=== PATIENT | male | born 1990 | race Caucasian/White ===

== ENCOUNTER 2020-07-08 12:43 | Emergency (ER) | payer OTHER, SELFPAY ==
[2020-07-08 13:04] VITALS: BP 155/92; PULSE 103; RESP 14; TEMP 37.1; O2SAT 97; BMI 39.3
[2020-07-08 13:22] VITALS: BP 161/98; PULSE 90; O2SAT 96
--- NOTE | 2020-07-08 13:23 | ED_ITS ---
HPI - Abdominal Pain General: Chief Complaint: Abdominal Pain Stated Complaint: L SIDE ABD PAIN, WORSE WITH TOUCH Time Seen by Provider: 07/08/20 13:10 History of Present Illness: HPI narrative: Patient is a well-appearing 29-year-old male seen for left-sided flank pain. He locates the pain to the intercostal region between ribs 9 and 10 on the left in the posterior axillary line. He states that he awoke with the pain this morning. He states the pain completely goes away with rest and is only elicited with palpation or side bending away from it. With palpation, he rates the pain at 7 of 10. At rest it is 0 of 10. He denies recent fever, cough, shortness of breath, chest pain, nausea, vomiting, dysuria, frequency, hematuria, blood in stool. He denies trauma to the area. He has not taken anything for the pain. He has no other acute complaints. Review of Systems General: Reports: 10 or more systems reviewed and unremarkable except in HPI and below Physical Exam Const: COMMON NORMALS: no acute distress, patient oriented x3 and alert HENMT: COMMON NORMALS: normocephalic and atraumatic HEAD & SCALP: normocephalic and atraumatic Eye: COMMON NORMALS: Equal, round and reactive pupils present, EOMs intact bilaterally and no scleral icterus PUPIL: Yes Equal, round and reactive pupils present Chest: COMMONS NORMALS: normal inspection of the chest and normal palpation of entire chest wall CHEST: Yes Symmetrical chest wall rise and Yes localized rib tenderness with anteroposterior compression (Pain with palpation of the musculature between left ribs 9 and 10) Location: 10th rib OTHER: Focal tenderness to palpation in the musculature between ribs 9 and 10 in the posterior axillary line on the left. No pain with palpation of the flank overlying the kidney. No evidence of trauma. No adventitious breath sounds. No increase in pain with deep inspiration. Resp: COMMON NORMALS: normal respiratory effort and No retractions Cardio: COMMON NORMALS: regular rate, regular rhythm and No murmurs present (Cardio) RATE: regular rate RHYTHM: regular rhythm GI: COMMON NORMALS: Normal to inspection, nondistended, normoactive bowel sounds present, Soft to palpation and non-tender PALPATION: Yes Soft to palpation Neuro: COMMON NORMALS: patient oriented x3 SENSORIUM/ORIENTATION: Yes alert Skin: COMMON NORMALS: no rashes or lesions noted GENERAL SKIN EXAM: no rashes or lesions noted Course Vital Signs: Vital signs: Vital Signs Temperature 98.7 F 07/08/20 13:04 Pulse Rate 96 07/08/20 13:25 Respiratory Rate 14 07/08/20 13:04 Blood Pressure 161/89 07/08/20 13:25 Pulse Oximetry 98 07/08/20 13:25 MDM - Abdominal Pain MDM Narrative: Medical decision making narrative: Exam is most consistent with muscular pain. I do not suspect pancreatitis, pyelonephritis, ureteral stone, splenomegaly, PE, pneumonia, pneumothorax, ACS, or any other emergent process warranting further work-up at this time. We discussed the differential and whether it was prudent to pursue further diagnostics, and he elects to go home and treat his symptoms with ibuprofen. He knows he is always welcome back in the emergency department should his symptoms get worse before outpatient follow- up. Discharge Plan Discharge Patient Disposition: Home Clinical Impression: Intercostal muscle pain Condition: Stable Discharge Orders: Discharge ED (Routine); Ordered 07/08/20 Ordered By: Miles Napier Referrals: Ishmael Mcbride MD [Primary Care Provider] - Discharge Diet: Usual diet Discharge Activity: Increase activity as tolerated Activity Restrictions/Additional Instructions: Your pain pattern is most consistent with muscle pain between the ribs. If your symptoms get worse, please have no hesitation to return to the emergency department to undergo imaging and blood tests. I do not think you are having an infection, kidney stone, splenomegaly, pancreatitis, pulmonary embolism, pneumonia, or any other emergency requiring further work-up at this time. Please follow-up with your primary care physician in the next week if symptoms have not completely resolved. Please take 600 mg ibuprofen with food up to 3 times a day for pain control. Coding Level of Care Code ED Senior Operations Analyst for Saran Fwd Exam Detailed
[2020-07-08 13:25] VITALS: BP 161/89; PULSE 96; O2SAT 98
== END 2020-07-08 13:26 | disposition home or self-care (01) ==
LOC: ER 13:37
PROVIDERS: Emergency Provider Physician Assistant; PCP Family Medicine
DX: M79.18 Myalgia, other site (principal)
CPT/HCPCS: 12345; 99281

== ENCOUNTER 2021-11-20 13:45 | Emergency (ER) | payer OTHER, SELFPAY ==
[2021-11-20 14:26] VITALS: BP 172/112; PULSE 75; RESP 18; TEMP 36.8; O2SAT 97; BMI 40.0
--- NOTE | 2021-11-20 15:10 | PC.NURSE ---
At bedside assumed care of patient.
[2021-11-20 15:33] LABS: Basophils # 0.1 10^3/uL (0.0-0.1); Basophils % 0.7 %; Eosinophils # 0.2 10^3/uL (0.0-0.8); Eosinophils % 1.6 %; Hematocrit 56.3 % (42.0-52.0); Hemoglobin 19.1 g/dL (11.7-16.6); Lymphocytes # 3.5 10^3/uL (0.8-4.8); Lymphocytes % 28.4 %; Mean Corpuscular HGB Conc 33.9 g/dL (30.0-36.0); Mean Corpuscular Hemoglobin 28.2 pg (28.0-34.0); Mean Platelet Volume 12.7 fL (7.4-10.4); Monocytes # 0.9 10^3/uL (0.2-0.9); Monocytes % 7.4 %; Neutrophils # 7.52 10^3/uL (1.8-7.7); Neutrophils % 61.4 %; Nucleated Red Blood Cells % 0 %; Platelet Count 203 10^3/cmm (130-400); Red Blood Count 6.78 10^6/uL (4.1-5.3); Red Cell Distribution Width 12.2 % (12.1-15.1); White Blood Count 12.2 10^3/uL (4.0-10.0)
--- NOTE | 2021-11-20 15:35 | W.ED.GENADLT ---
HPI - General Adult General: Chief complaint: Abdominal Pain Stated complaint: Thinks he had a hernia and Left foot injury Time Seen by Provider: 11/20/21 14:52 History of Present Illness: Patient is a 31-year-old male who comes to the ED with left foot injury and tender nodule in the left groin. Patient says he noticed the tender nodule in the left groin approximately 2 days ago. Its tender to palpation. He has not had any increased swelling in left groin and nodule has not gotten larger either. Denies any genital lesions, penile discharge, dysuria, hematuria or STD history. His other complaint is left foot pain after getting a small cut in between his second and third toes. [place] wound daily and soak foot in Epsom salt. He reports increased pain in foot patient is up-to-date on his tetanus. Associated symptoms: Deny chest pain, dyspnea, headache(s), nausea, rash, palpitations or vomiting Review of Systems Const: Denies: fever(s), chills or fatigue Eyes: Denies: change in vision or eye discomfort ENMT: Denies: throat pain, odynophagia, nasal discharge or nasal congestion Card: Denies: chest pain, palpitations, edema, swelling of feet/ankles, dyspnea on exertion or orthopnea Resp: Denies: dyspnea, productive cough or non-productive cough GI: Denies: abdominal pain, nausea, vomiting, diarrhea, constipation or hematochezia : Reports: other (Left groin pain.); Denies: flank pain, difficulty urinating, dysuria or hematuria Musc: Reports: extremity pain (left foot pain); Denies: neck pain, back pain or extremity swelling Skin/Breast: Denies: rash or new lesions Neuro: Denies: headache(s), numbness in extremities or weakness in extremities PFS ED PFSH: Medical History No pertinent family history Surgical History No pertinent past surgical history Physical Exam Const: COMMON NORMALS: no acute distress, patient oriented x3, healthy appearing and alert GENERAL APPEARANCE: cooperative and comfortable HENMT: COMMON NORMALS: normocephalic HEAD & SCALP: normocephalic MOUTH: Normal oral and palatal mucosa present THROAT: posterior oropharynx normal and uvula midline Neck/C-Spine: COMMON NORMALS: supple GENERAL: Yes normal visual inspection Lymph: LYMPHATIC: lymphadenopathy left inguinal single and tender 0.5 cm Resp: COMMON NORMALS: normal respiratory effort, No retractions, No use of accessory muscles and clear to auscultation bilaterally AUSCULTATION: clear to auscultation bilaterally Cardio: COMMON NORMALS: regular rate, regular rhythm, S1 normal heart sound present, S2 normal heart sound present, No gallops present (Cardio), No clicks present (Cardio), No murmurs present (Cardio) and Peripheral pulses 2+ throughout RATE: regular rate RHYTHM: regular rhythm HEART SOUNDS: S1 normal heart sound present and S2 normal heart sound present PERIPHERAL PULSES: Peripheral pulses 2+ throughout GI: COMMON NORMALS: Normal to inspection, nondistended, normoactive bowel sounds present, Soft to palpation, non-tender and no masses INSPECTION: No visible herniation PALPATION: Yes Soft to palpation and No Hernia present : COMMON NORMALS: Yes no CVA tenderness BLADDER/KIDNEY EXAM: Yes no CVA tenderness MALE GROIN/PERINEUM EXAM: Yes inguinal lymphadenopathy (Small tender nodule) Back/Pelvis: COMMON NORMALS: no CVA tenderness Extremity: COMMON NORMALS: normal to inspection NARRATIVE EXTREMITY EXAM: Patient has small superficial cut in between second and third digits of the left toe. Some surrounding erythema but no warmth or purulent drainage noted. No signs of cellulitis noted. Neuro: COMMON NORMALS: patient oriented x3 SENSORIUM/ORIENTATION: Yes alert GAIT: Yes Normal gait present Skin: GENERAL SKIN EXAM: dry skin Course Vital Signs: Vital signs: Vital Signs Temperature 98.2 F 11/20/21 14:26 Pulse Rate 75 11/20/21 14:26 Respiratory Rate 18 11/20/21 14:26 Blood Pressure 172/112 11/20/21 14:26 Pulse Oximetry 97 11/20/21 14:26 [facility] - General Adult Medical Decision Making Patient is a 32-year-old male comes to the ED with pain in the left foot and left groin nodule. Patient has small cut/laceration between second and third digits on left foot from [facility] approximately 3 to 4 days ago. Denies fevers, chills, nausea/vomiting, abdominal pain, bladder or bowel symptoms. Vitals are stable. Exam of patient shows left inguinal single tender lymph node that is approximately half a centimeter in size. Patient's left foot has a superficial cut between second and third digit. He does have some surrounding erythema but no warmth or purulent drainage seen. X-ray of left foot showed no acute findings. White blood cell count 12.2 with rest of CBC and CMP and UA were unremarkable. Patient was diagnosed with lymphadenitis and a cut on left foot. He was discharged home with a prescription for Augmentin and Medrol dose pack. He was told to follow-up with his PCP in the next week for reevaluation. Return ED precautions given. Patient understood and agreed with plan. Lab Data I reviewed the patient's lab results. : 11/20/21 15:22 11/20/21 15:22 Radiology Impressions Foot X-Ray 11/20/21 15:42 IMPRESSION: No acute findings. Laboratory Results WBC 12.2 10^3/uL (4.0-10.0) H 11/20/21 15:22 RBC 6.78 10^6/uL (4.1-5.3) H 11/20/21 15:22 Hgb 19.1 g/dL (11.7-16.6) H 11/20/21 15:22 Hct 56.3 % (42.0-52.0) H 11/20/21 15:22 MCV 83.0 fl (80-94) 11/20/21 15:22 MCH 28.2 pg (28.0-34.0) 11/20/21 15:22 MCHC 33.9 g/dL (30.0-36.0) 11/20/21 15:22 RDW 12.2 % (12.1-15.1) 11/20/21 15:22 Plt Count 203 10^3/cmm (130-400) 11/20/21 15:22 MPV 12.7 fL (7.4-10.4) H 11/20/21 15:22 Neut % (Auto) 61.4 % 11/20/21 15:22 Lymph % (Auto) 28.4 % 11/20/21 15:22 [place] % (Auto) 7.4 % 11/20/21 15:22 Eos % (Auto) 1.6 % 11/20/21 15:22 Baso % (Auto) 0.7 % 11/20/21 15:22 Neut # (Auto) 7.52 10^3/uL (1.8-7.7) 11/20/21 15:22 Lymph # (Auto) 3.5 10^3/uL (0.8-4.8) 11/20/21 15:22 [place] # (Auto) 0.9 10^3/uL (0.2-0.9) 11/20/21 15:22 Eos # (Auto) 0.2 10^3/uL (0.0-0.8) 11/20/21 15:22 Baso # (Auto) 0.1 10^3/uL (0.0-0.1) 11/20/21 15: Nucleated RBC % (auto) 0 % 11/20/21 15: Nucleated RBCs # 0.0 /100WBC 11/20/21 15:22 Sodium 139 mmol/L (136-145) 11/20/21 15:22 Potassium 3.8 mmol/L (3.5-5.1) 11/20/21 15: Chloride 102 mmol/L (98-107) 11/20/21 15: Carbon Dioxide 23 mmol/L (22-29) 11/20/21 15:22 Anion Gap 17.8 (5-19) 11/20/21 15:22 BUN 12 mg/dL (6-20) 11/20/21 15:22 Creatinine 1.0 mg/dL (0.7-1.2) 11/20/21 15:22 GFR Calculation 87.7 mL/min (90-130) L 11/20/21 15:22 Glucose 94 mg/dL (65-115) 11/20/21 15:22 Calculated Osmolality 288 mOsm/kg (285-295) 11/20/21 15:22 Calcium 9.5 mg/dL (8.5-10.5) 11/20/21 15:22 Total Bilirubin 0.6 mg/dL (0.15-1.2) 11/20/21 15:22 AST 31 U/L (0-40) 11/20/21 15:22 ALT 49 U/L (0-41) H 11/20/21 15:22 Alkaline Phosphatase 91 IU/L (40-130) 11/20/21 15:22 Total Protein 8.0 g/dL (6.6-8.7) 11/20/21 15:22 Albumin 5.0 g/dL (3.5-5.2) 11/20/21 15:22 Globulin 3.0 g/dL (1.3-4.6) 11/20/21 15:22 Lipase 61 U/L (13-60) H 11/20/21 15:22 Urine Color Yellow (Yellow) 11/20/21 15:18 Urine Appearance Clear (CLEAR) 11/20/21 15:18 Urine pH 5 (5-7) 11/20/21 15:18 Ur Specific [place] 1.020 (1.005-1.030) 11/20/21 15:18 Urine Protein Neg (Negative) 11/20/21 15:18 Urine Glucose (UA) Norm (Normal) 11/20/21 15:18 Urine Ketones 1+ (Negative) H 11/20/21 15:18 Urine Blood Neg (Negative) 11/20/21 15:18 Urine Nitrate Negative (Negative) 11/20/21 15:18 Urine Bilirubin 1+ (Negative) H 11/20/21 15:18 Urine Urobilinogen 1 mg/dL (Negative) H 11/20/21 15:18 Ur Leukocyte Esterase Trace (Negative) H 11/20/21 15:18 Urine RBC None /hpf (0-2) 11/20/21 15:18 Urine WBC 0-4 /hpf (0-5) H 11/20/21 15:18 Ur Squamous Epith Cells None /hpf (0-5) 11/20/21 15:18 Amorphous Sediment Not Reportable 11/20/21 15:18 Urine Bacteria None /hpf (NONE) 11/20/21 15:18 Urine Mucus Trace /hpf 11/20/21 15:18 Discharge Plan Discharge Patient Disposition: Home Clinical Impression: Lymphadenitis, Cut of foot Condition: Stable Prescriptions: New Augmentin 500-125 mg tablet 1 tab PO BID 7 Days Qty: 14 0RF Medrol (Buddy) 4 mg tablets,dose pack See Rx Instructions .ROUTE .COMPLEX Qty: 21 0RF Rx Instructions: orally per package directions Discharge Orders: Discharge ED (Routine); Ordered 11/20/21 Ordered By: Kvng Stone Referrals: Madison Girard PA [Primary Care Provider] - Discharge Diet: Regular Discharge Activity: Increase activity as tolerated Patient Instructions: Lymphadenitis Activity Restrictions/Additional Instructions: Follow-up with medical provider as directed in the next 7 to 10 days for reevaluation. Take medications as prescribed. Return to the ER or your medical provider if condition worsens. Please read and understand discharge instructions. Thank you for choosing [facility] for your healthcare needs today. Please realize this is an emergency room and that we are providing you with a medical screening exam and this may not be complete and all inclusive of all the testing and or work up that you may need to determine your ailment or severity of your illness. It is very important that you follow up as instructed or that you return to the Emergency Department should you have concerns or if your condition changes or worsens in any way. Coding Level of Care Code ED Technical Sales Representative for Saran Espitia Exam Comprehensive
--- NOTE | 2021-11-20 15:42 | XRR_ITS ---
PROCEDURE INFORMATION: Exam: XR Left Foot Exam date and time: 11/20/2021 4:02 PM Age: 31 years old Clinical indication: Injury or trauma; Other: Cut between toes; Laceration; Left middle toe and left fourth toe; Foreign body involvement not specified; Additional info: Foot injury with pain around 2nd and 3rd digit TECHNIQUE: Imaging protocol: XR Left foot. Views: 3 or more views. COMPARISON: No relevant prior studies available. FINDINGS: Bones/joints: Normal. Soft tissues: Normal. XR/XR foot LT min 3V* [id number] IMPRESSION: No acute findings.
[2021-11-20 15:54] LABS: Alanine Aminotransferase 49 U/L (0-41); Alkaline Phosphatase 91 IU/L (40-130); Anion Gap 17.8 (5-19); Aspartate Amino Transferase 31 U/L (0-40); Blood Urea Nitrogen 12 mg/dL (6-20); Calcium 9.5 mg/dL (8.5-10.5); Carbon Dioxide 23 mmol/L (22-29); Chloride 102 mmol/L (98-107); Glomerular Filtration Rate 87.7 mL/min (90-130); Glucose 94 mg/dL (65-115); Lipase 61 U/L (13-60); Osmolality Calculated 288 mOsm/kg (285-295); Potassium 3.8 mmol/L (3.5-5.1); Sodium 139 mmol/L (136-145); Total Bilirubin 0.6 mg/dL (0.15-1.2)
[2021-11-20 16:01] LABS: Urine Appearance Clear (CLEAR); Urine Color Yellow (Yellow); pH Urine 5 (5-7)
[2021-11-20 16:02] LABS: Bilirubin Urine 1+ (Negative); Blood Urine Neg (Negative); Glucose Urine UA Norm (Normal); Ketones Urine 1+ (Negative); Nitrate Urine Negative (Negative); Protein Urine Neg (Negative)
[2021-11-20 16:03] LABS: Add Urine Microscopic? YES; Leukocyte Esterase Urine Trace (Negative); Urobilinogen Urine 1 mg/dL (Negative)
[2021-11-20 16:04] LABS: Mucus Urine TRACE /hpf; WBC Urine 0-4 /hpf (0-5)
[2021-11-20 16:05] LABS: Add Urine Culture? No
== END 2021-11-20 16:46 | disposition home or self-care (01) ==
PROVIDERS: Emergency Provider Physician Assistant; PCP Physician Assistant
DX: I88.9 Nonspecific lymphadenitis, unspecified (principal); S91.312A Laceration without foreign body, left foot, initial encounter; W26.8XXA Contact with other sharp object(s), not elsewhere classified, initial encounter; Y92.828 Other wilderness area as the place of occurrence of the external cause
CPT/HCPCS: 73630; 80053; 81001; 83690; 85025; 99283

== ENCOUNTER 2024-08-26 09:17 | Inpatient (IN) | payer SELFPAY ==
[2024-08-26] VITALS (27 sets, daily range): BP systolic 132–188; BP diastolic 78–124; PULSE 83–111; RESP 12–27; TEMP 36.6–38.1; O2SAT 91–99; BMI 39.3
--- NOTE | 2024-08-26 09:28 | ED_ITS ---
HPI - Skin/Abscess/Foreign Bdy 2 General: Chief complaint: Skin/Abscess/Foreign Body Stated complaint: cellulitis problems was @ u/c yesterday Time Seen by Provider: 08/26/24 09:20 Source: patient Mode of arrival: ambulatory Limitations: no limitations History of Present Illness: 34-year-old male presents to the ER with complaints of cellulitis on near his right buttock. Patient states he was at the urgent care yesterday for his cellulitis and was prescribed Cefdinir, Cipro and Bactrim (also given IM Rocephin). Patient states he first started noticing the abscess last week on Monday and started having fevers on Monday along with cold night sweats. His highest fever was on Monday at 103 ?F. Patient denies any previous history of cellulitis/abscess. Rating pain at an 8/10. Patient denies chest pain, palpitations, shortness of breath, vision changes, vomiting, diarrhea, or constipation. MD complaint: abscess/boil Onset (ago): day(s) Tetanus up to date: yes Location: buttocks (Right upper buttock ) Severity: severe Severity scale (1-10): 8 Quality: aching and constant Pain Consistency: constant Relieving factors: none Exacerbating factors: palpation and movement (Pain with pressure from sitting) Context: none Associated symptoms: Reports chills, fever(s) and nausea; Deny vomiting Treatments prior to arrival: antibiotic (Cefdinir, Ciprofloxacin, Bactrim from ) and other (Tylenol for fevers) Related Data Home Medications ?Medication ?Instructions ?Recorded ?Confirmed acetaminophen 500 mg tablet 500 mg PO QID PRN Fever Or Pain 08/26/24 08/26/24 (Tylenol Extra Strength) Previous Rx's ?Medication ?Instructions ?Recorded cefdinir 300 mg capsule 300 mg PO BID #20 caps 08/25 ciprofloxacin HCl 500 mg tablet 500 mg PO Q12H #20 tab s 08/25/24 sulfamethoxazole 800 1 tab PO BID #20 tabs mg-trimethoprim 160 mg tablet (Bactrim DS) Allergies Allergy/AdvReac Type Severity Reaction Status Date / Time Penicillins Allergy Severe swelling Verified 08/25/24 10:11 Review of Systems 2 Const: Reports: fever(s), chills, body aches, fatigue and night sweats (Cold night sweats ) Eyes: Denies: change in vision or blurry vision Card: Denies: chest pain or palpitations Resp: Denies: dyspnea, productive cough or non-productive cough GI: Reports: nausea and rectal pain; Denies: abdominal pain, vomiting, hematemesis, diarrhea, constipation, change in bowel habits, hematochezia or melena : Denies: flank pain, dysuria or hematuria Musc: Denies: neck pain, back pain, extremity pain, extremity swelling or joint swelling Skin/Breast: Reports: erythema, skin pain and skin swelling Neuro: Denies: headache(s), numbness in extremities or weakness in extremities PFSH ED 2 PFSH: Medical History No pertinent family history Surgical History No pertinent past surgical history Social History Smoking and tobacco/nicotine status: current every day tobacco/nicotine user Physical Exam 2 Const: COMMON NORMALS: patient oriented x3, no limitations, alert and well nourished GENERAL APPEARANCE: cooperative, in distress (appears uncomfortable secondary to pain) and anxious NUTRITIONAL APPEARANCE: obese O RIENTATION/CONSCIOUSNESS: Yes awake, Yes oriented to person, Yes oriented to place and Yes oriented to time Resp: COMMON NORMALS: normal respiratory effort and clear to auscultation bilaterally EFFORT & INSPECTION: Yes able to speak in complete sentences A USCULTATION: clear to auscultation bilaterally Cardio: COMMON NORMALS: regular rate and regular rhythm RATE: regular rate RHYTHM: regular rhythm GI: COMMON NORMALS: Normal to inspection, nondistended, normoactive bowel sounds present, Soft to palpation, non-tender, No hepatosplenomegaly present and no masses PALPATION: Yes Soft to palpation and Yes No hepatosplenomegaly present OTHER: very large area of warm erythematous and induration noted affecting R gluteal cleft and superior anorectal region; exquisitely tender to palpation; external non-thrombosed hemorrhoids : COMMON NORMALS: Yes no CVA tenderness BLADDER/KIDNEY EXAM: Yes no CVA tenderness Back/Pelvis: COMMON NORMALS: no CVA tenderness Extremity: GENERAL: Yes normal exam except as noted Neuro: COMMON NORMALS: patient oriented x3 SENSORIUM/ORIENTATION: Yes alert, Yes oriented to person, Yes oriented to place and Yes oriented to time Skin: NARRATIVE SKIN EXAM: anorectal abscess GENERAL SKIN EXAM: erythema and induration Course 2 Vital Signs: Vital signs: Vital Signs Temperature 98.7 F 08/26/24 09:26 Pulse Rate 111 H 08/26/24 09:26 Respiratory Rate 17 08/26/24 10:24 Blood Pressure 155/95 08/26/24 11:05 Pulse Oximetry 97 08/26/24 11:05 MDM - Skin/Abscess/Foreign Bdy Medicial Decision Making Patient arrived tachycardic. His white count of 16.38. His lactic is normal. CRP is significantly elevated at 176.4. CT scan did show an ill-defined fluid collection measuring 3 x 4 x 3 cm suspicious for early developing abscess that did not appear easily drainable. Suggestion of a tract of fluid extending to the external anal sphincter. Spoke to general surgeon, Dr. Cornell who will admit patient and plan for probable OR later today. Patient has an allergy to penicillins. He was started on cefuroxime and flagyl. Blood cultures obtained and he was given IBW sepsis bolus. Dr. Canela will place admit orders. Medical Records I reviewed the patient's medical records. Lab Data I reviewed the patient's lab results. 08/26/24 09:50 08/26/24 09:[address] 08/26/24 09:39 IMPRESSION: Small ill-defined fluid collection along the RIGHT gluteal cleft described above. This does not not appear easily drainable. Suggestion of a small fluid- filled tract extending to the external anal sphincter near the 6 o'clock position Laboratory Results WBC 16.38 10^3/uL (3.29-11.43) H 08/26/24 09:50 RBC 6.01 10^6/uL (3.85-5.65) H 08/26/24 09:50 Hgb 16.70 g/dL (11.27-16.99) 08/26/24 09:50 Hct 50.4 % (37-53) 08/26/24 09:50 MCV 83.9 fl (82-101) 08/26/24 09:50 MCH 27.8 pg (27-33) 08/26/24 09:50 MCHC 33.1 g/dL (30-55) 08/26/24 09:50 RDW 12.4 % (12.1-15.1) 08/26/24 09:50 Plt Count 189 10^3/cmm (157-399) 08/26/24 09:50 MPV 12.0 fL (7.4-10.4) H 08/26/24 09:50 Neut % (Auto) 78.4 % 08/26/24 09:50 Lymph % (Auto) 13.3 % 08/26/24 09:50 [place] % (Auto) 6.8 % 08/26/24 09:50 Eos % (Auto) 0.6 % 08/26/24 09:50 Baso % (Auto) 0.4 % 08/26/24 09:50 Neut # (Auto) 12.83 10^3/uL (1.8-7.7) H 08/26/24 09:50 Lymph # (Auto) 2.2 10^3/uL (0.8-4.8) 08/26/24 09:50 [place] # (Auto) 1.1 10^3/uL (0.2-0.9) H 08/26/24 09:50 Eos # (Auto) 0.1 10^3/uL (0.0-0.8) 08/26/24 09:50 Baso # (Auto) 0.1 10^3/uL (0.0-0.1) 08/26/24 09:50 Nucleated RBC % (auto) 0 % 08/26/24 09:50 Nucleated RBCs # 0.0 /100WBC 08/26/24 09:50 Sodium 132 mmol/L (136-145) L 08/26/24 09:50 Potassium 3.5 mmol/L (3.5-5.1) 08/26/24 09:50 Chloride 96 mmol/L (98-107) L 08/26/24 09:50 Carbon Dioxide 22 mmol/L (22-29) 08/26/24 09:50 Anion Gap 17.5 (5-19) 08/26/24 09:50 BUN 7 mg/dL (6-20) 08/26/24 09:50 Creatinine 1.0 mg/dL (0.7-1.2) 08/26/24 09:50 GFR Calculation 86.1 mL/min (90-130) L 08/26/24 09:50 Glucose 149 mg/dL (65-115) H 08/26/24 09:50 Calculated Osmolality 275 mOsm/kg (285-295) L 08/26/24 09:50 Lactic Acid 1.6 mmol/L (0.5-2.2) 08/26/24 09:50 Calcium 9.7 mg/dL (8.5-10.5) 08/26/24 09:50 Total Bilirubin 0.8 mg/dL (0.15-1.2) 08/26/24 09:50 AST 15 U/L (0-40) 08/26/24 09:50 ALT 17 U/L (0-41) 08/26/24 09:50 Alkaline Phosphatase 154 U/L (40-130) H 08/26/24 09:50 C-Reactive Protein 176.4 mg/L (0.0-4.9) H 08/26/24 09:50 Total Protein 8.3 g/dL (6.6-8.7) 08/26/24 09:50 Albumin 4.3 g/dL (3.5-5.2) 08/26/24 09:50 Globulin 4.0 g/dL (1.3-4.6) 08/26/24 09:50 All radiology interpretation(s) finalized by discharge Discharge Plan Discharge Patient Disposition: Admitted As Inpatient Clinical Impression: Anorectal abscess Condition: Stable Coding Level of Care Code ED Director Of Federal Sales for Saran Espitia
--- NOTE | 2024-08-26 09:39 | CT_ITS ---
WS: [id number] CT pelvis TECHNIQUE: Contrast-enhanced CT of the pelvis with coronal and sagittal reformatted images. CLINICAL INFORMATION: anorectal abscess COMPARISON: None. DLP: 1003.[address] scans at [facility] use at least one of these dose optimization techniques: automated exposure control; mA and/or kV adjustment per patient size (includes targeted exams where dose is matched to clinical indication); or iterative reconstruction. FINDINGS: Small ill-defined fluid collection measuring 3.1 x 4.2 x 3.2 suspicious for early developing abscess formation. This does not not appear easily drainable. Suggestion of a small fluid tract extending to the 600 position external anal sphincter. Fluid collection along the RIGHT gluteal cleft with associated induration and soft tissue and skin thickening. Surrounding soft tissue induration in the RIGHT greater than LEFT subcutaneous gluteal soft tissues. CT/CT pelvis w con* [id number] IMPRESSION: Small ill-defined fluid collection along the RIGHT gluteal cleft described abov e. This does not not appear easily drainable. Suggestion of a small fluid-fille d tract extending to the external anal sphincter near the 6 o'clock position
[2024-08-26 10:06] LABS: Basophils # 0.1 10^3/uL (0.0-0.1); Basophils % 0.4 %; Eosinophils # 0.1 10^3/uL (0.0-0.8); Eosinophils % 0.6 %; Hematocrit 50.4 % (37-53); Lymphocytes # 2.2 10^3/uL (0.8-4.8); Lymphocytes % 13.3 %; Mean Corpuscular HGB Conc 33.1 g/dL (30-55); Mean Corpuscular Hemoglobin 27.8 pg (27-33); Mean Corpuscular Volume 83.9 fl (82-101); Monocytes # 1.1 10^3/uL (0.2-0.9); Monocytes % 6.8 %; Neutrophils # 12.83 10^3/uL (1.8-7.7); Neutrophils % 78.4 %; Nucleated Red Blood Cells % 0 %; Platelet Count 189 10^3/cmm (157-399); Red Blood Count 6.01 10^6/uL (3.85-5.65); Red Cell Distribution Width 12.4 % (12.1-15.1); White Blood Count 16.38 10^3/uL (3.29-11.43)
[2024-08-26 10:23] LABS: Lactic Sepsis W/Reflex 1.6 mmol/L (0.5-2.2)
[2024-08-26] MEDS: ondansetron 2 mg/ML SDV 2 mL 4 MG IVP (10:23)
[2024-08-26 10:24] LABS: Alanine Aminotransferase 17 U/L (0-41); Albumin Level 4.3 g/dL (3.5-5.2); Alkaline Phosphatase 154 U/L (40-130); Anion Gap 17.5 (5-19); Aspartate Amino Transferase 15 U/L (0-40); Blood Urea Nitrogen 7 mg/dL (6-20); C Reactive Protein 176.4 mg/L (0.0-4.9); Calcium 9.7 mg/dL (8.5-10.5); Carbon Dioxide 22 mmol/L (22-29); Chloride 96 mmol/L (98-107); Creatinine Clr Calc Pharmacy 147.3877; Glomerular Filtration Rate 86.1 mL/min (90-130); Glucose 149 mg/dL (65-115); Osmolality Calculated 275 mOsm/kg (285-295); Potassium 3.5 mmol/L (3.5-5.1); Sodium 132 mmol/L (136-145); Total Bilirubin 0.8 mg/dL (0.15-1.2); Total Protein 8.3 g/dL (6.6-8.7)
[2024-08-26] MEDS: morphine 4 mg/mL SDV 1 mL IVP ×2 (10:24→16:24)
[2024-08-26] MEDS: iohexol 350 mg/mL 500 mL Btl (per mL) IV (10:26)
[2024-08-26] MEDS: metroNIDAZOLE IV 500 MG/100 ML PREMIX 100 MG IV ×2 (10:34→16:23)
[2024-08-26] MEDS: sodium chloride 0.9% 2,328 ML 2328 ML IV (10:40)
--- NOTE | 2024-08-26 12:46 | PM.HP ---
Providers/Chief Complaint Primary Care Provider: Madison Girard Chief Complaint: cellulitis problems was @ u/c yesterday History of Present Illness Cleve Recinos is a 34 year old male who presents with a perianal abscess. Seen yesterdat at urgent care and prescribed antibiotics. Presented to ED due to worsening perianal pain and fevers. CT consistent withg perianal abscess. No relevant PMH. Medications/Allergies Home Medications ?Medication ?Instructions ?Recorded ?Confirmed ?Last Taken ?Type cefdinir 300 mg capsule 300 mg PO BID #20 caps 08/25/24 08/26/24 Unknown Rx ciprofloxacin HCl 500 mg tablet 500 mg PO Q12H #20 tabs 08/25/24 08/26/24 08/26/24 02:30 Rx sulfamethoxazole 800 1 tab PO BID #20 tabs 08/25/24 08/26/24 08/26/24 01:30 Rx mg-trimethoprim 160 mg tablet (Bactrim DS) acetaminophen 500 mg tablet 500 mg PO QID PRN Fever Or Pain 08/26/24 08/26/24 08/25/24 21:00 History (Tylenol Extra Strength) Allergies Allergy/AdvReac Type Severity Reaction Status Date / Time Penicillins Allergy Severe swelling Verified 08/25/24 10:11 PFSH Acute PFSH: Medical History No pertinent family history Surgical History No pertinent past surgical history Social History Smoking and tobacco/nicotine status: current every day tobacco/nicotine user Vitals/I&O/Wt Last Vital Signs Temp 98.7 F 08/26/24 09:26 Pulse 111 H 08/26/24 09:26 Resp 17 08/26/24 10:24 BP 140/101 08/26/24 12:15 Pulse Ox 98 08/26/24 12:15 Weight last 48 hrs Weight 290 lb Physical Exam Narrative: Unlabored breathing RA RRR Abdomen soft, nt, nd Perineum exam deferred Data 08/26/24 09:50 08/26/24 09:50 Micro: Microbiology 08/26/24 09:55 Blood Culture - Preliminary Blood SPECIMEN COLLECTED 08/26/24 09:50 Blood Culture - Preliminary Blood SPECIMEN COLLECTED A&P Assessment and plan (1) Perianal abscess: Plan 34yo male who presented with a perianal abscess. Discussed risks and benefits and patient agrees to proceed with EUA of rectum possible I&D of abscess, possible fitulotomy, possible seton placement. PDMP PDMP Reviewed: Not Reviewed Attestations Medical Necessity Statement*: IV abx Coding Level of Care Code 29646 Diagnoses Perianal abscess K61.0 Time Spent (min) 30
--- NOTE | 2024-08-26 13:29 | PC.NURSE ---
pt off the floor to surgery at 1325.
[2024-08-26] MEDS: sodium chloride 0.9% 1,000 ML 30 ML IV (13:53)
--- NOTE | 2024-08-26 13:56 | ANES.PREANE2 ---
Pre-Anesthetic Assessment Height/Weight: Height 1.83 m Weight 131.542 kg Temp Pulse Resp BP Pulse Ox O2 Del Method 99.9 F H 94 20 H 179/104 99 Room Air 08/26/24 13:38 08/26/24 13:38 08/26/24 13:38 08/26/24 13:38 08/26/24 13:38 08/26/24 13:38 Operation Date: 08/26/24 14:10 Proposed Procedures p Exam Under Anesthesia(Not Applicable) - Christopher Cornell MD s Possible Fistulotomy Anal- possible cecum replacement(Not Applicable) - Christopher Cornell MD Familial anesthetic complications: None Was Beta Ismael taken within 24 hours: N/A Was Clonidine taken within 24 hours: N/A Last intake: > 8 hrs Social No alcohol and No tobacco Exam alert, oriented x 3, clear to auscultation bilaterally and regular rate & rhythm Airway Mallampati: Class III Dentition: other (chipped) Comments: Comments: large neck, full dixon Metabolic Morbid Obesity Anesthetic Plan ASA status: 2 Anesthesia: General Risk of > 500 ml blood loss (7ml/kg in children): No Medications/Allergies Home Medications ?Medication ?Instructions ?Recorded ?Confirmed ?Last Taken ?Type cefdinir 300 mg capsule 300 mg PO BID #20 caps 08/25/24 08/26/24 Unknown Rx ciprofloxacin HCl 500 mg tablet 500 mg PO Q12H #20 tabs 08/25/24 08/26/24 08/26/24 02:30 Rx sulfamethoxazole 800 1 tab PO BID #20 tabs 08/25/24 08/26/24 08/26/24 01:30 Rx mg-trimethoprim 160 mg tablet (Bactrim DS) acetaminophen 500 mg tablet 500 mg PO QID PRN Fever Or Pain 08/26/24 08/26/24 08/25/24 21:00 History (Tylenol Extra Strength) Allergies Allergy/AdvReac Type Severity Reaction Status Date / Time Penicillins Allergy Severe swelling Verified 08/25/24 10:11 [facility] Anesthesia Medical History No pertinent family history Surgical History No pertinent past surgical history Social History Smoking and tobacco/nicotine status: current every day tobacco/nicotine user Data Anesthesia 08/26/24 09:50 08/26/24 09:50 Short CBC 08/26/24 Range/Units 09:50 WBC 16.38 H (3.29-11.43) 10^3/uL Hgb 16.70 (11.27-16.99) g/dL Hct 50.4 (37-53) % MCV 83.9 (82-101) fl Plt Count 189 (157-399) 10^3/cmm Neut % (Auto) 78.4 % Neut # (Auto) 12.83 H (1.8-7.7) 10^3/uL BMP 08/26/24 09:50 Sodium 132 L Potassium 3.5 Chloride 96 L Carbon Dioxide 22 BUN 7 Creatinine 1.0 Glucose 149 H Calcium 9.7 Liver Function 08/26/24 Range/Units 09:50 Total Bilirubin 0.8 (0.15-1.2) mg/dL AST 15 (0-40) U/L ALT 17 (0-41) U/L Alkaline Phosphatase 154 H (40-130) U/L Albumin 4.3 (3.5-5.2) g/dL Coags 08/26/24 09:50 C-Reactive Protein 176.4 H Microbiology 08/26/24 09:55 Blood Culture - Preliminary Blood SPECIMEN COLLECTED 08/26/24 09:50 Blood Culture - Preliminary Blood SPECIMEN COLLECTED Cardiac Studies: No Data to Display
--- NOTE | 2024-08-26 14:47 | PM.OP ---
Operative Report Date of procedure: August 26, 2024 Pre-op diagnosis: Perianal abscess Post-op diagnosis: same Post-op findings: 6 x 5 x 4 cm abscess right buttock. No fistula. Procedure done: Exam under anesthesia of the rectum and incision and drainage of perianal abscess Implants: N/A Specimens removed/disposition: Cultures sent Pathology: none sent Surgeon: Christopher Cornell MD Anesthesia: General Estimated blood loss (mL): 20 Complications: N/A Findings: Perianal abscess 6 x 4 x 4 cm right buttock. No fistula. Packed wound with half-inch Nu Gauze. Condition: stable Disposition: observation Brief History: 34-year-old male who presented with a perianal abscess. Discussed risk and benefits and patient agreed to proceed with exam under anesthesia of the rectum, possible incision and drainage of abscess, possible fistulotomy, possible seton placement. Procedure: After obtaining consent patient was brought into the operating room. Antibiotics were administered prior to coming to the operating room. SCDs were on and working. General anesthesia was induced. Patient was placed prone. Extremities were appropriately padded. The perineum was prepped and draped in the usual sterile fashion using Betadine. A cruciate incision was carried out at the point of maximum fluctuance. Approximately 150 cc of purulent fluid was drained. Cultures were sent. Exam under anesthesia of the rectum did not demonstrate a fistula. Patient does have prominent hemorrhoids. The abscess cavity was irrigated with 500 cc of normal saline. The cavity was also washed out with diluted peroxide. Adequate hemostasis was achieved using electrocautery. Wound base was healthy. Wound was packed using half-inch Nu Gauze. Fluff was applied on top of the wound. The patient woke up from anesthesia without any complications and was transferred to PACU.
--- NOTE | 2024-08-26 15:51 | PC.NURSE ---
accepted into room 257 at 1537 with Radha RN at side BP 163/83 - 107 - temp 98.5 - 93% - pt in no distress upon this nurse leaving room
--- NOTE | 2024-08-26 15:55 | ANE.PACU2 ---
Inpatient post-anesthesia follow up: Airway intact: Yes Vital signs: Temperature 98.4 F Pulse Rate 58 Respiratory Rate 17 Blood Pressure 146/79 Pulse Oximetry 97 Oxygen Delivery Me thod Room Air Oxygen Flow Rate 8 Fraction of Inspir ed Oxygen Hydration adequate: Yes Nausea and vomiting: No Pain level: 1 Mental status: Baseline
[2024-08-27 00:25] VITALS: BP 146/90; PULSE 86; RESP 18; TEMP 37.2; O2SAT 94
[2024-08-27 01:22] VITALS: RESP 16
[2024-08-27] MEDS: metroNIDAZOLE IV 500 MG/100 ML PREMIX 100 MG IV ×2 (01:22→09:58)
[2024-08-27] MEDS: morphine 4 mg/mL SDV 1 mL IVP (01:22)
[2024-08-27 02:48] LABS: Basophils % 0.2 %; Eosinophils % 0.1 %; Hematocrit 43.7 % (37-53); Lymphocytes # 1.5 10^3/uL (0.8-4.8); Lymphocytes % 8.8 %; Mean Corpuscular HGB Conc 33.6 g/dL (30-55); Mean Corpuscular Hemoglobin 28.2 pg (27-33); Mean Corpuscular Volume 83.7 fl (82-101); Mean Platelet Volume 11.9 fL (7.4-10.4); Monocytes % 6.1 %; Neutrophils # 14.13 10^3/uL (1.8-7.7); Neutrophils % 84.2 %; Nucleated Red Blood Cells % 0 %; Platelet Count 188 10^3/cmm (157-399); Red Blood Count 5.22 10^6/uL (3.85-5.65); Red Cell Distribution Width 12.4 % (12.1-15.1); White Blood Count 16.77 10^3/uL (3.29-11.43)
[2024-08-27 03:56] VITALS: BP 146/90; PULSE 86; RESP 17; TEMP 37; O2SAT 96
[2024-08-27 06:00] VITALS: BMI 39.3
[2024-08-27 08:25] VITALS: BP 146/79; PULSE 58; RESP 17; TEMP 36.9; O2SAT 97
--- NOTE | 2024-08-27 09:21 | PC.CHAP ---
Pastoral Care Encounter/Spiritual Assessment Type of Contact [] Declined head of drama visit [] Patient/Family/Request visit [] Outpatient visit [] Follow-up visit [] Physician referral [] Code/Alert [x] Routine visit [] Staff referral [] Actively dying [] Patient sleeping [] Family support [] [] Out of room [] Palliative care [] [] Receiving care in room [] Pre-surgical visit [] Trauma [] Long length of stay [] ICU visit [] Other: Relational/Emotional Strength [x] Patient feels connected with others/family/visitors/staff [] Distress [] Loneliness/isolation [] Abandonment Spirituality of Patient [x] Person of Elsa [] Attends [employer] of their Elsa [x] Believes in Prayer [] Reads Bible or Congregational materials [] There are Spiritual issues to be addressed Strip Stamp Straightener Interventions [x] Prayer [x] Active listening [] Non-anxious presence [x] Spiritual/emotional support [] Crisis/trauma care [] Spiritual counseling [] Bereavement support [] Provided bereavement packet [] Provided Bible/devotional materials [] Provided toy/stuffed animal, coloring book to patient or family member [] Provided Communion [] Anointing/[place]ola [] Salvation [x] Completed spiritual assessment [] Other: Impact on Illness or Injury [] Angry [] Fearful [] Anxious [] Often cries [] Exhaustion [] Unable to work [] Unable to attend islam [] Unable to walk/stand [] Unable to read [] Unable to drive [] Unable to eat/drink [] Unable to sleep [] Unable to be with family [] Patient intubated [] Other: Summary Time spent with patient 5 mi8n
[2024-08-27] MEDS: heparin 5,000 unit/mL INJ 1 mL 5000 UNIT SUBCUT (09:56)
--- NOTE | 2024-08-27 11:31 | P.PN_ITS ---
Subjective 2 Subjective: Afebrile Feeling better Vitals/I&O/Wt Last Vital Signs Temp 98.4 F 08/27/24 08:25 Pulse 58 L 08/27/24 08:25 Resp 17 08/27/24 08:25 BP 146/79 08/27/24 08:25 Pulse Ox 97 08/27/24 08:25 O2 Del Method Room Air 08/27/24 08:25 O2 Flow Rate 8 08/26/24 15:08 08/26/24 08/27/24 08/27/24 22:59 06:59 14:59 Intake Total 340 / 3818 100 / 3918 460 / 460 Balance 340 / 3816 100 / 3916 460 / 460 Weight last 48 hrs Weight 290 lb Weight 290 lb Weight 290 lb Physical Exam 2 Narrative: Packing changed. Cellulitis improved in perineum RRR Unlabored breathing RA Data 08/27/24 02:40 08/26/24 09:50 Micro: Microbiology 08/26/24 14:37 Gram Stain - Final Anus Anaerobic Culture - Preliminary Abscess Culture - Preliminary 08/26/24 09:50 Blood Culture - Preliminary Blood NEGATIVE TO DATE 08/26/24 09:55 Blood Culture - Preliminary Blood NEGATIVE TO DATE A&P Assessment and plan (1) Perianal abscess: Plan 34yo male admitted with a perianal abscess and cellulitis. POD 1 I&D abscess. Cleared for discharge. Follow up in 2 weeks. Change packing daily. PDMP PDMP Reviewed: Last Reviewed 08/27/24 13:18 EDT by Christopher Cornell MD Attestations 2 Medical Necessity Statement*: IV abx Coding Level of Care Code 28079 Diagnoses Perianal abscess K61.0
[2024-08-27 12:00] VITALS: BP 154/78; PULSE 83; RESP 17; TEMP 36.6; O2SAT 97
[2024-08-27 12:54] VITALS: BP 154/78; PULSE 83; O2SAT 97
--- NOTE | 2024-08-29 15:08 | P.DS_ITS ---
Discharge Providers Date of Admission: 08/26/24 12:52 Date of Discharge: August 29, 2024 Attending Provider at Admission: Christopher Cornell MD Attending Provider at Discharge: Christopher Cornell MD Primary Care Provider: Madison Girard Diagnoses at Discharge Discharge Diagnosis (1) Perianal abscess: Status: Resolved Reason for Visit Reason for Visit: cellulitis problems was @ u/c yesterday Hospital Course Hospital Course 34 yo female who presented with perianal abscess. Performed I&D. Discharged the following day. Physical Exam Narrative: RRR Unlabored breathing RA abdomen soft, nt, nd Perineum - changed packing Discharge Data Studies Completed and Pending Completed Studies During Hospitalization Category Date Time Status CT pelvis w con* [id number] Stat Cat Scan 08/26/24 09:39 Completed Pending at discharge Category Date Time Status Abscess Culture and Gram Stain Routine Lab 08/26/24 14:37 Results Anaerobic Culture Routine Lab 08/26/24 14:37 Results Blood Culture Stat Lab 08/26/24 09:55 Results Radiology Impressions Pelvis CT 08/26/24 09:39 IMPRESSION: Small ill-defined fluid collection along the RIGHT gluteal cleft described above. This does not not appear easily drainable. Suggestion of a small fluid- filled tract extending to the external anal sphincter near the 6 o'clock position Laboratory Results WBC 16.77 10^3/uL (3.29-11.43) H 08/27/24 02:40 RBC 5.22 10^6/uL (3.85-5.65) 08/27/24 02:40 Hgb 14.70 g/dL (11.27-16.99) 08/27/24 02:40 Hct 43.7 % (37-53) 08/27/24 02:40 MCV 83.7 fl (82-101) 08/27/24 02:40 MCH 28.2 pg (27-33) 08/27/24 02:40 MCHC 33.6 g/dL (30-55) 08/27/24 02:40 RDW 12.4 % (12.1-15.1) 08/27/24 02:40 Plt Count 188 10^3/cmm (157-399) 08/27/24 02:40 MPV 11.9 fL (7.4-10.4) H 08/27/24 02:40 Neut % (Auto) 84.2 % 08/27/24 02:40 Lymph % (Auto) 8.8 % 08/27/24 02:40 Colbert % (Auto) 6.1 % 08/27/24 02:40 Eos % (Auto) 0.1 % 08/27/24 02:40 Baso % (Auto) 0.2 % 08/27/24 02:40 Neut # (Auto) 14.13 10^3/uL (1.8-7.7) H 08/27/24 02:40 Lymph # (Auto) 1.5 10^3/uL (0.8-4.8) 08/27/24 02:40 Colbert # (Auto) 1.0 10^3/uL (0.2-0.9) H 08/27/24 02:40 Eos # (Auto) 0.0 10^3/uL (0.0-0.8) 08/27/24 02:40 Baso # (Auto) 0.0 10^3/uL (0.0-0.1) 08/27/24 02:40 Nucleated RBC % (auto) 0 % 08/27/24 02:40 Nucleated RBCs # 0.0 /100WBC 08/27/24 02:40 Sodium 132 mmol/L (136-145) L 08/26/24 09:50 Potassium 3.5 mmol/L (3.5-5.1) 08/26/24 09:50 Chloride 96 mmol/L (98-107) L 08/26/24 09:50 Carbon Dioxide 22 mmol/L (22-29) 08/26/24 09:50 Anion Gap 17.5 (5-19) 08/26/24 09:50 BUN 7 mg/dL (6-20) 08/26/24 09:50 Creatinine 1.0 mg/dL (0.7-1.2) 08/26/24 09:50 GFR Calculation 86.1 mL/min (90-130) L 08/26/24 09:50 Glucose 149 mg/dL (65-115) H 08/26/24 09:50 Calculated Osmolality 275 mOsm/kg (285-295) L 08/26/24 09:50 Lactic Acid 1.6 mmol/L (0.5-2.2) 08/26/24 09:50 Calcium 9.7 mg/dL (8.5-10.5) 08/26/24 09:50 Total Bilirubin 0.8 mg/dL (0.15-1.2) 08/26/24 09:50 AST 15 U/L (0-40) 08/26/24 09:50 ALT 17 U/L (0-41) 08/26/24 09:50 Alkaline Phosphatase 154 U/L (40-130) H 08/26/24 09:50 C-Reactive Protein 176.4 mg/L (0.0-4.9) H 08/26/24 09:50 Total Protein 8.3 g/dL (6.6-8.7) 08/26/24 09:50 Albumin 4.3 g/dL (3.5-5.2) 08/26/24 09:50 Globulin 4.0 g/dL (1.3-4.6) 08/26/24 09:50 Vitals Last Vital Signs Temp 97.9 F 08/27/24 12:00 Pulse 83 08/27/24 12:54 Resp 17 08/27/24 12:00 BP 154/78 08/27/24 12:54 Pulse Ox 97 08/27/24 12:54 O2 Del Method Room Air 08/27/24 12:00 O2 Flow Rate 8 08/26/24 15:08 Discharge Plan Discharge Patient Disposition: Home Condition: Stable Prescriptions: New ciprofloxacin HCl [Cipro] 500 mg tablet 500 mg PO Q12H 7 Days Qty: 14 0RF metronidazole 500 mg tablet 500 mg PO Q8H 7 Days Qty: 21 0RF oxycodone 5 mg tablet 5 mg PO Q6H PRN (Reason: pain) 5 Days Qty: 10 0RF Continued acetaminophen [Tylenol Extra Strength] 500 mg Tablet 500 mg PO QID PRN (Reason: Fever Or Pain) Discontinued ciprofloxacin HCl 500 mg tablet 500 mg PO Q12H Qty: 20 0RF cefdinir 300 mg capsule 300 mg PO BID Qty: 20 0RF sulfamethoxazole-trimethoprim [Bactrim DS] 800-160 mg tablet 1 tab PO BID Qty: 20 0RF Rx Instructions: Drink plenty of water with this medication. Discharge Orders: Discharge Order (Routine); Ordered 08/27/24 Ordered By: Christopher Cornell Referrals: Christopher Cornell MD [Physician] - 2 weeks (We have notified your physician's clinic of the need for a follow-up appointment to be scheduled. If you have not heard from them within the next 2 business days, please call them directly. ) Madison Girard PA [Primary Care Provider] - 09/04/24 2:20 pm Discharge Diet: Usual diet Discharge Activity: Resume usual activity Patient Instructions: Ciprofloxacin (By mouth), Metronidazole (By mouth), Oxyc odone, Rapid Release (By mouth), Acute Wound Care (DC), Opioid Safety, Post Anesthesia Care Activity Restrictions/Additional Instructions: 1. Continue packing wound daily until follow up appointment in 2 weeks. 2. Finish 7 day course of ciprofloxacin flagyl. 3. Call the office if you have any questions. Discharge Attestations Time Spent in Discharge Care*: greater than 30 min Quality Metrics Clinical Quality Measures [ No reported AMI, CVA or VTE this stay] Coding Level of Care Code Acute Code for Chg Fwd Diagnoses Perianal abscess K61.0
== END 2024-08-27 12:56 | disposition home or self-care (01) | DRG 395 ==
LOC: ER 12:40 → MEDSURG 12:53
PROVIDERS: Admitting Provider Student in an Organized Health Care Education/Training Program; Emergency Provider Physician Assistant; PCP Physician Assistant; Visit Provider Student in an Organized Health Care Education/Training Program
PROC: 0D9QXZX Drainage of Anus, External Approach, Diagnostic (ICD-10-PCS; principal; 2024-08-26 14:00)
PROC: 0D9QXZX Drainage of Anus, External Approach, Diagnostic (ICD-10-PCS; 2024-08-26 14:00)
DX: K61.0 Anal abscess (principal); F17.210 Nicotine dependence, cigarettes, uncomplicated
CPT/HCPCS: 36415; 72193; 80053; 83605; 85025; 86140; 87040; 87070; 87075; 87205; 96365; 96372; 96375; 99285; J0330; J0697; J1100; J1171; J1644; J2250; J2270; J2405; J2704; J2710; J3010; J3490; J7030; J9999

== ENCOUNTER 2024-09-04 19:28 | Emergency (ER) | payer SELFPAY ==
[2024-09-04 19:34] VITALS: BP 174/10; PULSE 115; RESP 20; TEMP 36.7; O2SAT 95; BMI 39.3
[2024-09-04 19:59] VITALS: BP 154/108; PULSE 94; RESP 16; O2SAT 97
--- NOTE | 2024-09-04 20:12 | W.ED.SKABFB ---
HPI - Skin/Abscess/Foreign Bdy General: Chief complaint: Skin/Abscess/Foreign Body Stated complaint: Post surg, incision is red, smells Time Seen by Provider: 09/04/24 19:56 Source: patient and family Mode of arrival: ambulatory Limitations: no limitations History of Present Illness: This patient returns to the emergency department today accompanied by his spouse because of need to have his i anal rectal abscess drainage site rechecked. He had a I&D in the OR approximately 9 days ago and has been doing generally well postoperatively he is continued his antibiotics and just took his last metronidazole this evening. His significant other noted that she seemed to smell a different odor today and she became concerned and therefore prompted to come to the emergency department for reevaluation. He has not had any documented fevers. A little bit uncomfortable as he rolled over here in the car over the bumps and it kind of made him uncomfortable but generally he is not having a pain or discomfort in the area. He has been having bowel movements normally. He is eating and drinking normally and not having any other issues or problems at this time. Associated symptoms: Deny chills, fever(s), nausea or vomiting Related Data Home Medications ?Medication ?Instructions ?Recorded ?Confirmed acetaminophen 500 mg tablet 500 mg PO QID PRN Fever Or Pain 08/26/24 08/26/24 (Tylenol Extra Strength) Allergies Allergy/AdvReac Type Severity Reaction Status Date / Time Penicillins Allergy Severe swelling Verified 08/25/24 10:11 Review of Systems Const: Denies: fever(s) or chills ENMT: Denies: throat pain, odynophagia, nasal discharge or nasal congestion Card: Denies: chest pain or palpitations Resp: Denies: dyspnea, productive cough or non-productive cough GI: Denies: abdominal pain, nausea, vomiting or diarrhea : Denies: flank pain, difficulty urinating or dysuria Musc: Denies: neck pain, back pain or extremity pain Neuro: Denies: headache(s), numbness in extremities or weakness in extremities Artemio/Lymph: Denies: easy bruising or easy bleeding [facility] ED PFSH: Medical History No pertinent family history Surgical History No pertinent past surgical history Social History Smoking and tobacco/nicotine status: current every day tobacco/nicotine user Physical Exam Narrative: EXAM NARRATIVE: He appears to be in no significant distress makes good eye contact speech is goal-directed and he answers questions appropriately. Const: COMMON NORMALS: patient oriented x3, no limitations and alert GENERAL APPEARANCE: cooperative and well kempt HENMT: COMMON NORMALS: Normal nasal mucous membranes and turbinates present NOSE: Normal nasal mucous membranes and turbinates present Eye: COMMON NORMALS: Equal, round and reactive pupils present and conjunctivae normal CONJUNCTIVA: Yes conjunctivae normal PUPIL: Yes Equal, round and reactive pupils present Neck/C-Spine: COMMON NORMALS: full ROM and no lymphadenopathy Resp: COMMON NORMALS: normal respiratory effort and No use of accessory muscles EFFORT & INSPECTION: Yes able to speak in complete sentences Cardio: COMMON NORMALS: regular rate RATE: regular rate GI: COMMON NORMALS: Normal to inspection, nondistended, normoactive bowel sounds present OTHER: Examination of the ischial rectal region noted dressing over the right ischium and buttock. This dressing was taken down and the packing was removed. He has a cruciate incision approximately 3 o'clock position with respect to his gluteal cleft and rectum. There is very healthy appearing granulation tissue around the wound edges into the depth of the wound. There is a small amount of bleeding tissue after removal of packing. The packing does not cannot have a purulent smell to it and the wound itself does not have any smell. There is no surrounding erythema and palpation of the soft tissues around the wound and in the ischium and the buttock is soft and nontender. Back/Pelvis: COMMON NORMALS: thoracic and lumbar spine normal to inspection and no thoracic nor lumbar tenderness Extremity: COMMON NORMALS: normal to inspection and full ROM Neuro: COMMON NORMALS: patient oriented x3, moves all extremities and no focal motor deficits SENSORIUM/ORIENTATION: Yes alert Psych: APPEARANCE: Yes well kempt Skin: NARRATIVE SKIN EXAM: Skin examination reveals no other wounds rashes etc. The previous I&D site of his anorectal abscess skin around the wound itself is without any erythema or other concerning findings. Course Vital Signs: Vital signs: Vital Signs Temperature 98.0 F 09/04/24 19:34 Pulse Rate 94 09/04/24 19:59 Respiratory Rate 16 09/04/24 19:59 Blood Pressure 154/108 09/04/24 19:59 Pulse Oximetry 97 09/04/24 19:59 Oxygen Delivery Me thod Room Air 09/04/24 19:59 MDM - Skin/Abscess/Foreign Bdy Medicial Decision Making Patient presented as noted in history of present illness. The concern permanent predominantly was whether there was a infection or other change in his wound and therefore prompted him to come to the emergency department. No history of fevers and has been having normal both urine and fecal matter elimination without difficulty. Said good wound care at home. Examination here revealed no concerning findings such as odor, erythema, fluctuance, purulence that would suggest reaccumulation of abscess, localized cellulitis etc. I reassured the patient and his significant other that they are doing a good job with wound care and that they should continue to do so and perhaps reduce the packing by half to reduce the mass effect and allow the wound to start closing internally to the outside. We also discussed return precautions and that should prompt him to come to the back to the emergency department should he develop fever, increasing pain, purulent drainage etc. They voiced understanding and were appreciative of care. No radiology studies performed this visit Discharge Plan Discharge Patient Disposition: Home Clinical Impression: Encounter for post surgical wound check, Cellulitis and abscess of buttock Condition: Stable Prescriptions: No Action acetaminophen [Tylenol Extra Strength] 500 mg Tablet 500 mg PO QID PRN (Reason: Fever Or Pain) Discharge Orders: Discharge ED (Routine); Ordered 09/04/24 Ordered By: Vipul Diehl Referrals: Madison Girard PA [Primary Care Provider] - Discharge Diet: Usual diet Discharge Activity: Increase activity as tolerated Patient Instructions: Opioid Safety, Pain Management Activity Restrictions/Additional Instructions: Continue with wound care as previously instructed. The wound at this time looks healthy and healing well without any obvious signs of infection or other concerns. If it anytime you develop fever, increasing pain yellowish or purulent drainage or other concerns you are welcome to return to the emergency department. Follow-up with your surgeon as scheduled next week. Print Language: Icelandic Coding Level of Care Code ED Manager Floral for Saran Espitia
[2024-09-04 20:42] VITALS: BP 125/91; PULSE 89; RESP 16; O2SAT 99
== END 2024-09-04 20:43 | disposition home or self-care (01) ==
PROVIDERS: Emergency Provider Emergency Medicine; PCP Physician Assistant
DX: Z48.817 Encounter for surgical aftercare following surgery on the skin and subcutaneous tissue (principal); L03.317 Cellulitis of buttock; L02.31 Cutaneous abscess of buttock; Z72.0 Tobacco use
CPT/HCPCS: 99281

== ENCOUNTER 2024-11-04 07:15 | Observation (INO) | payer SELFPAY ==
[2024-11-04] VITALS (19 sets, daily range): BP systolic 126–166; BP diastolic 78–116; PULSE 64–88; RESP 14–21; TEMP 36.6–37.1; O2SAT 93–97; BMI 40.6
--- NOTE | 2024-11-04 07:51 | ED_ITS ---
HPI - Skin/Abscess/Foreign Bdy 2 General: Chief complaint: Skin/Abscess/Foreign Body Stated complaint: tailbone problems Time Seen by Provider: 11/04/24 07:29 History of Present Illness: 34-year-old male Presents emergency room as swelling and discomfort at the site of previous incision. Patient had a pilonidal cyst that tracked to the anus he underwent surgery for this and was on antibiotics this was about 2 months ago. Last couple of days he has had increased pain localized swelling and tenderness no actual drainage at the previous incision site no fever sweats or chills. Patient states he noticed some blood in the stool a few days ago and one-time event has not recurred. Patient is not diabetic. He had a previous prescription for ciprofloxacin he has been taking twice daily for the last 2 days Associated symptoms: Deny chills, fever(s), nausea or vomiting Related Data Home Medications ?Medication ?Instructions ?Recorded ?Confirmed acetaminophen 500 mg tablet 500 mg PO QID PRN Fever Or Pain 08/26/24 11/04/24 (Tylenol Extra Strength) Allergies Allergy/AdvReac Type Severity Reaction Status Date / Time Penicillins Allergy Severe swelling Verified 08/25/24 10:11 Review of Systems 2 Const: Denies: fever(s) or chills Card: Denies: chest pain Resp: Denies: dyspnea GI: Reports: hematochezia; Denies: abdominal pain, nausea or vomiting : Denies: dysuria, urinary frequency or urinary urgency Musc: Denies: neck pain or back pain Skin/Breast: Denies: rash PFSH ED 2 PFSH: Medical History No pertinent family history Surgical History No pertinent past surgical history Social History Smoking and tobacco/nicotine status: current every day tobacco/nicotine user Physical Exam 2 Const: GENERAL APPEARANCE: cooperative ORIENTATION/CONSCIOUSNESS: Yes awake, Yes oriented to person, Yes oriented to place and Yes oriented to time HENMT: COMMON NORMALS: normocephalic, atraumatic and hearing grossly normal bilaterally HEAD & SCALP: normocephalic and atraumatic Resp: COMMON NORMALS: normal respiratory effort, No retractions, No use of accessory muscles and clear to auscultation bilaterally AUSCULTATION: clear to auscultation bilaterally Cardio: COMMON NORMALS: regular rate, regular rhythm and No murmurs present (Cardio) RATE: regular rate RHYTHM: regular rhythm GI: COMMON NORMALS: Soft to palpation and No hepatosplenomegaly present A USCULTATION: Yes normoactive bowel sounds PALPATION: Yes Soft to palpation, No Tenderness to palpation present (GI), No Guarding due to palpation present (GI) and Yes No hepatosplenomegaly present OTHER: At superior aspect of the gluteal cleft to the right of the midline there is a healing incision with localized erythema exquisite tenderness on touch no easily palpable fluctuant areas no evidence of drainage. There is no open tracts noted. Extremity: COMMON NORMALS: normal to inspection, capillary refill normal, no clubbing, cyanosis or edema, no calf tenderness and no pedal edema Neuro: SENSORIUM/ORIENTATION: Yes oriented to person, Yes oriented to place and Yes oriented to time Skin: COMMON NORMALS: no rashes or lesions noted GENERAL SKIN EXAM: no rashes or lesions noted Course 2 Vital Signs: Vital signs: Vital Signs Temperature 98.8 F 11/04/24 07:37 Pulse Rate 83 11/04/24 12:27 Respiratory Rate 18 11/04/24 12:01 Blood Pressure 148/91 11/04/24 12:27 Pulse Oximetry 96 11/04/24 12:27 Oxygen Delivery Me thod Room Air 11/04/24 12:14 MDM - Skin/Abscess/Foreign Bdy Medicial Decision Making Ultrasound there does appear to be a abscess formation. Discussed with surgery. They asked for CT will admit and started on IV antibiotics. CT done shows 3 x 1.6 cm abscess. Discussed with surgery and orders written. Medical Records I reviewed the patient's medical records. Lab Data I reviewed the patient's lab results. 11/04/24 08:42 11/04/24 08:42 Radiology Impressions Soft Tissue Ultrasound 11/04/24 07:58 IMPRESSION: 1. Complex inflammatory collection along the gluteal cleft and extending greater to the RIGHT. Collection consistent with an abscess with a large amount of internal debris. The wall is thickened but does appear to be intact. 2. Phlegmonous inflammatory collection was noted on a prior CT from 08/26/2024 in this location. The abscess has become formed and discrete since then. Pelvis CT 11/04/24 09:41 IMPRESSION: 1. Small peripherally enhancing abscess along the RIGHT gluteal cleft has developed compared to previous. This measures 3.0 x 1.6 cm. 2. Previously described extensive surrounding induration has significantly improved compared to previous. Previously described fistulous tract to the external anal sphincter is less well defined today. Laboratory Results WBC 8.89 10^3/uL (3.29-11.43) 11/04/24 08:42 RBC 6.08 10^6/uL (3.85-5.65) H 11/04/24 08:42 Hgb 17.00 g/dL (11.27-16.99) H 11/04/24 08:42 Hct 51.2 % (37-53) 11/04/24 08:42 MCV 84.2 fl (82-101) 11/04/24 08:42 MCH 28.0 pg (27-33) 11/04/24 08:42 MCHC 33.2 g/dL (30-55) 11/04/24 08:42 RDW 12.3 % (12.1-15.1) 11/04/24 08:42 Plt Count 171 10^3/cmm (157-399) 11/04/24 08:42 MPV 11.7 fL (7.4-10.4) H 11/04/24 08:42 Neut % (Auto) 65.9 % 11/04/24 08:42 Lymph % (Auto) 24.5 % 11/04/24 08:42 [place] % (Auto) 6.5 % 11/04/24 08:42 Eos % (Auto) 2.0 % 11/04/24 08:42 Baso % (Auto) 0.7 % 11/04/24 08:42 Neut # (Auto) 5.85 10^3/uL (1.8-7.7) 11/04/24 08:42 Lymph # (Auto) 2.2 10^3/uL (0.8-4.8) 11/04/24 08:42 [place] # (Auto) 0.6 10^3/uL (0.2-0.9) 11/04/24 08:42 Eos # (Auto) 0.2 10^3/uL (0.0-0.8) 11/04/24 08:42 Baso # (Auto) 0.1 10^3/uL (0.0-0.1) 11/04/24 08:42 Nucleated RBC % (auto) 0 % 11/04/24 08:42 Nucleated RBCs # 0.0 /100WBC 11/04/24 08:42 Sodium 139 mmol/L (136-145) 11/04/24 08:42 Potassium 4.1 mmol/L (3.5-5.1) 11/04/24 08:42 Chloride 103 mmol/L (98-107) 11/04/24 08:42 Carbon Dioxide 23 mmol/L (22-29) 11/04/24 08:42 Anion Gap 17.1 (5-19) 11/04/24 08:42 BUN 8 mg/dL (6-20) 11/04/24 08:42 Creatinine 0.9 mg/dL (0.7-1.2) 11/04/24 08:42 GFR Calculation 97.2 mL/min (90-130) 11/04/24 08:42 Glucose 162 mg/dL (65-115) H 11/04/24 08:42 Calculated Osmolality 290 mOsm/kg (285-295) 11/04/24 08:42 Calcium 9.1 mg/dL (8.5-10.5) 11/04/24 08:42 Total Bilirubin 0.4 mg/dL (0.15-1.2) 11/04/24 08:42 AST 26 U/L (0-40) 11/04/24 08:42 ALT 50 U/L (0-41) H 11/04/24 08:42 Alkaline Phosphatase 117 U/L (40-130) 11/04/24 08:42 Total Protein 7.2 g/dL (6.6-8.7) 11/04/24 08:42 Albumin 4.3 g/dL (3.5-5.2) 11/04/24 08:42 Globulin 2.9 g/dL (1.3-4.6) 11/04/24 08:42 Urine Color Yellow (Yellow) 11/04/24 09:44 Urine Appearance Clear (CLEAR) 11/04/24 09:44 Urine pH 6.0 (5-7) 11/04/24 09:44 Ur Specific [place] 1.025 (1.005-1.030) 11/04/24 09:44 Urine Protein 3+ (Negative) A 11/04/24 09:44 Urine Glucose (UA) Negative (Normal) 11/04/24 09:44 Urine Ketones Trace (Negative) 11/04/24 09:44 Urine Blood Negative (Negative) 11/04/24 09:44 Urine Nitrate Negative (Negative) 11/04/24 09:44 Urine Bilirubin Negative (Negative) 11/04/24 09:44 Urine Urobilinogen 1.0 mg/dL (Negative) 11/04/24 09:44 Ur Leukocyte Esterase Negative (Negative) 11/04/24 09:44 Urine RBC 0-2 /hpf (0-2) 11/04/24 09:44 Urine WBC 0-5 /hpf (0-5) 11/04/24 09:44 Ur Squamous Epith Cells 0-5 /hpf (0-5) 11/04/24 09:44 Amorphous Sediment Not Reportable 11/04/24 09:44 Urine Bacteria None seen /hpf (NONE) 11/04/24 09:44 Hyaline Casts 0.40 /lpf 11/04/24 09:44 All radiology interpretation(s) finalized by discharge Discharge Plan Discharge Patient Disposition: Admitted As Inpatient Admit Provider: Christopher Cornell Clinical Impression: Cellulitis and abscess of buttock Condition: Stable Coding Level of Care Code ED Manager Integrated for Chg Omkar
--- NOTE | 2024-11-04 07:58 | US_ITS ---
WS: [id number] ULTRASOUND SOFT TISSUES gluteal cleft. HISTORY: Pilonidal cyst right of midline gluteal cleft COMPARISON: Prior CT 08/26/2024 TECHNIQUE: 2-D and color Doppler imaging is submitted. There is a large complex collection along the gluteal cleft and slightly greater to the RIGHT of midline. This is a very large complex collection with only a few cystic areas. This is a thick walled collection with internal echoes. There is extension superficially through the subcutaneous soft tissue. There is very minimal increased vascularity peripherally. Mass measures at least 1.4 x 2.8 x 2.5 cm. US/US soft tissue/extremity 41397 IMPRESSION: 1. Complex inflammatory collection along the gluteal cleft and extending grea ter to the RIGHT. Collection consistent with an abscess with a large amount of internal debris. The wall is thickened but does appear to be intact. 2. Phlegmonous inflammatory collection was noted on a prior CT from 08/26/2024 in this location. The abscess has become formed and discrete since then.
[2024-11-04 08:48] LABS: Basophils # 0.1 10^3/uL (0.0-0.1); Basophils % 0.7 %; Eosinophils # 0.2 10^3/uL (0.0-0.8); Hematocrit 51.2 % (37-53); Lymphocytes # 2.2 10^3/uL (0.8-4.8); Lymphocytes % 24.5 %; Mean Corpuscular HGB Conc 33.2 g/dL (30-55); Mean Corpuscular Volume 84.2 fl (82-101); Mean Platelet Volume 11.7 fL (7.4-10.4); Monocytes # 0.6 10^3/uL (0.2-0.9); Monocytes % 6.5 %; Neutrophils # 5.85 10^3/uL (1.8-7.7); Neutrophils % 65.9 %; Nucleated Red Blood Cells % 0 %; Platelet Count 171 10^3/cmm (157-399); Red Blood Count 6.08 10^6/uL (3.85-5.65); Red Cell Distribution Width 12.3 % (12.1-15.1); White Blood Count 8.89 10^3/uL (3.29-11.43)
[2024-11-04 09:08] LABS: Alanine Aminotransferase 50 U/L (0-41); Albumin Level 4.3 g/dL (3.5-5.2); Alkaline Phosphatase 117 U/L (40-130); Anion Gap 17.1 (5-19); Aspartate Amino Transferase 26 U/L (0-40); Blood Urea Nitrogen 8 mg/dL (6-20); Calcium 9.1 mg/dL (8.5-10.5); Carbon Dioxide 23 mmol/L (22-29); Chloride 103 mmol/L (98-107); Creatinine Clr Calc Pharmacy 166.7602; Globulin 2.9 g/dL (1.3-4.6); Glomerular Filtration Rate 97.2 mL/min (90-130); Glucose 162 mg/dL (65-115); Osmolality Calculated 290 mOsm/kg (285-295); Potassium 4.1 mmol/L (3.5-5.1); Sodium 139 mmol/L (136-145); Total Bilirubin 0.4 mg/dL (0.15-1.2); Total Protein 7.2 g/dL (6.6-8.7)
--- NOTE | 2024-11-04 09:41 | CT_ITS ---
WS: [id number] CT pelvis TECHNIQUE: Contrast-enhanced CT of the pelvis with coronal and sagittal reformatted images. CLINICAL INFORMATION: abscess COMPARISON: CT 08/26/2024 DLP: 1040.[address] scans at [facility] use at least one of these dose optimization techniques: automated exposure control; mA and/or kV adjustment per patient size (includes targeted exams where dose is matched to clinical indication); or iterative reconstruction. FINDINGS: Small peripherally enhancing abscess along the RIGHT gluteal fold measuring 3.0 x 1.6 cm surrounding induration and inflammatory changes. Perianal inflammation has improved compared to previous. A well-defined fistulous tract to the anal sphincter is less distinct today without definite fistulous connection No free fluid in the pelvis. Tiny fat-containing umbilical hernia. Disc bulging worse at L4-L5 and L5-S1. CT/CT pelvis w con* [id number] IMPRESSION: 1. Small peripherally enhancing abscess along the RIGHT gluteal cleft has deve loped compared to previous. This measures 3.0 x 1.6 cm. 2. Previously described extensive surrounding induration has significantly imp roved compared to previous. Previously described fistulous tract to the externa l anal sphincter is less well defined today.
[2024-11-04 10:07] LABS: Bilirubin Urine Negative (Negative); Blood Urine Negative (Negative); Glucose Urine UA Negative (Normal); Ketones Urine Trace (Negative); Leukocyte Esterase Urine Negative (Negative); Nitrate Urine Negative (Negative); Protein Urine 3+ (Negative); Specific Gravity, Urine 1.025 (1.005-1.030); Urine Appearance Clear (CLEAR); Urine Color Yellow (Yellow)
[2024-11-04 10:09] LABS: Add Urine Microscopic? YES; Bacteria Urine None Seen /hpf; RBC Urine 0-2 /hpf (0-2); Squamous Epithelial Cell Urine 0-5 /hpf (0-5); WBC Urine 0-5 /hpf (0-5)
[2024-11-04] MEDS: iohexol 350 mg/mL 500 mL Btl (per mL) IV (10:20)
[2024-11-04] MEDS: ciprofloxacin 400 MG/200 ML PREMIX 200 MG IV (10:46)
[2024-11-04] MEDS: morphine 4 mg/mL SDV 1 mL IVP (10:48)
[2024-11-04] MEDS: ondansetron 2 mg/ML SDV 2 mL 4 MG IVP (10:48)
--- NOTE | 2024-11-04 11:21 | P.HP_ITS ---
Providers/Chief Complaint 2 Admitting Physician: Christopher Cornell MD Primary Care Provider: Madison Girard Chief Complaint: tailbone problems History of Present Illness Cleve Recinos is a 34 year old male with a recurrent perianal abscess. Patient reports pain at the site. Medications/Allergies Home Medications ?Medication ?Instructions ?Recorded ?Confirmed ?Last Taken ?Type acetaminophen 500 mg tablet 500 mg PO QID PRN Fever Or Pain 08/26/24 11/04/24 08/25/24 21:00 History (Tylenol Extra Strength) Allergies Allergy/AdvReac Type Severity Reaction Status Date / Time Penicillins Allergy Severe ALGY-Anaphy Verified 11/04/24 14:46 laxis PFSH Acute 2 PFSH: Medical History No pertinent family history Surgical History No pertinent past surgical history Social History Smoking and tobacco/nicotine status: current every day tobacco/nicotine user Vitals/I&O/Wt Last Vital Signs Temp 98.8 F 11/04/24 07:37 Pulse 86 11/04/24 10:25 Resp 16 11/04/24 07:37 BP 166/116 11/04/24 07:37 Pulse Ox 96 11/04/24 10:25 O2 Del Method Room Air 11/04/24 10:25 Weight last 48 hrs Weight 300 lb Physical Exam 2 Narrative: Chest: Unlabored breathing room air. No lymphadenopathy. Heart: Regular rate and rhythm. Abdomen: Soft, nontender, nondistended. No masses or lymphadenopathy. Perineal exam deferred Data 11/04/24 08:42 11/04/24 08:42 Micro: Microbiology 11/04/24 10:12 Blood Culture - Preliminary Blood SPECIMEN COLLECTED A&P Assessment and plan (1) Cellulitis and abscess of buttock: Plan 34-year-old male who presented with a recurrent perianal abscess. Discussed risk and benefits and patient agrees to proceed with exam under anesthesia of the rectum, possible incision and drainage of perianal abscess, possible seton placement. PDMP PDMP Reviewed: Not Reviewed Attestations 2 Medical Necessity Statement*: IV antibiotics, IV fluids, IV pain Coding Level of Care Code 95117 Diagnoses Cellulitis and abscess of buttock L02.31; L03.317
[2024-11-04 11:48] LABS: Lactic Sepsis W/Reflex 1.2 mmol/L (0.5-2.2)
[2024-11-04] MEDS: metroNIDAZOLE IV 500 MG/100 ML PREMIX 100 MG IV (11:53)
[2024-11-04] MEDS: oxyCODONE 5 mg IR Tab/Cap PO ×2 (14:24→18:41)
--- NOTE | 2024-11-04 14:44 | ANES.PREANE2 ---
Pre-Anesthetic Assessment Height/Weight: Height 6 ft Weight 300 lb Temp Pulse Resp BP Pulse Ox O2 Del Method 98.8 F 83 16 148/91 96 Room Air 11/04/24 07:37 11/04/24 12:27 11/04/24 14:24 11/04/24 12:27 11/04/24 12:27 11/04/24 12:14 Preop Diagnosis: Jesus rectal abscess Operation Date: 11/04/24 15:30 Proposed Procedures p Perirectal Abscess Incision And Drainage(Not Applicable) - Christopher Cornell MD Was Beta Ismael taken within 24 hours: N/A Was Clonidine taken within 24 hours: N/A Last intake: Intake Last Liquid Date 11/03/24 Last Liquid Time 20:30 Last Solid Date 11/03/24 Last Solid Time 20:30 Social Tobacco and No alcohol Exam alert, oriented x 3, clear to auscultation bilaterally and regular rate & rhythm Airway Submandibular: Other (Large dixon with large neck) Cervical ROM: within normal limits Mallampati: Class III Comments: Comments: Multiple missing teeth, denies any loose Anesthetic Plan ASA status: 3 Anesthesia: General Other: No prior issues with anesthesia NPO since yesterday evening around 8 PM States that sometimes his blood pressure is high when he comes to the hospital. Preop BP 148/91 Smokes nicotine and marijuana Labs reviewed from today, hemoglobin 17 Patient is currently afebrile METs greater than 4 Plan for general anesthesia Medications/Allergies Home Medications ?Medication ?Instructions ?Recorded ?Confirmed ?Last Taken ?Type acetaminophen 500 mg tablet 500 mg PO QID PRN Fever Or Pain 08/26/24 11/04/24 08/25/24 21:00 History (Tylenol Extra Strength) Allergies Allergy/AdvReac Type Severity Reaction Status Date / Time Penicillins Allergy Severe swelling Verified 08/25/24 10:11 Current Medications Generic Name Dose Route Start Last Admin Trade Name Freq PRN Reason Stop Dose Admin Oxycodone HCl 5 mg 11/04/24 14:11 11/04/24 14:24 Oxycodone 5 Mg Ir Tab/Cap PO 5 mg Q4H PRN Administration MODERATE PAIN PFSH Anesthesia Medical History No pertinent family history Surgical History No pertinent past surgical history Social History Smoking and tobacco/nicotine status: current every day tobacco/nicotine user Data Anesthesia 11/04/24 08:42 11/04/24 08:42 Short CBC 11/04/24 Range/Units 08:42 WBC 8.89 (3.29-11.43) 10^3/uL Hgb 17.00 H (11.27-16.99) g/dL Hct 51.2 (37-53) % MCV 84.2 (82-101) fl Plt Count 171 (157-399) 10^3/cmm Neut % (Auto) 65.9 % Neut # (Auto) 5.85 (1.8-7.7) 10^3/uL BMP 11/04/24 08:42 Sodium 139 Potassium 4.1 Chloride 103 Carbon Dioxide 23 BUN 8 Creatinine 0.9 Glucose 162 H Calcium 9.1 Liver Function 11/04/24 Range/Units 08:42 Total Bilirubin 0.4 (0.15-1.2) mg/dL AST 26 (0-40) U/L ALT 50 H (0-41) U/L Alkaline Phosphatase 117 (40-130) U/L Albumin 4.3 (3.5-5.2) g/dL Urine 11/04/24 Range/Units 09:44 Urine Color Yellow (Yellow) Urine Appearance Clear (CLEAR) Urine pH 6.0 (5-7) Ur Specific [place] 1.025 (1.005-1.030) Urine Protein 3+ A (Negative) Urine Glucose (UA) Negative (Normal) Urine Ketones Trace (Negative) Urine Nitrate Negative (Negative) Urine Bilirubin Negative (Negative) Ur Leukocyte Esterase Negative (Negative) Urine RBC 0-2 (0-2) /hpf Urine WBC 0-5 (0-5) /hpf Microbiology 11/04/24 11:02 Blood Culture - Preliminary Blood SPECIMEN COLLECTED 11/04/24 10:12 Blood Culture - Preliminary Blood SPECIMEN COLLECTED
[2024-11-04] MEDS: sodium chloride 0.9% 1,000 ML 30 ML IV (15:16)
--- NOTE | 2024-11-04 15:51 | P.OP_ITS ---
Operative Report Date of procedure: November 04, 2024 Pre-op diagnosis: Recurrent perianal abscess Post-op diagnosis: same Post-op findings: Recurrent perineal abscess. Spontaneously draining. Approximately 4 x 4 x 2 cm. Serosanguineous drainage. No fistula encountered. Prominent hemorrhoids of all 3 columns. Procedure done: Exam under anesthesia of the rectum. Incision and drainage of recurrent perineal abscess. Implants: N/A Specimens removed/disposition: N/A Pathology: N/A Surgeon: Christopher Cornell MD Shredder Operator: N/A Anesthesia: General Estimated blood loss (mL): 20 Complications: N/A Findings: Recurrent perineal abscess. Spontaneously draining. Approximately 4 x 4 x 2 cm. Serosanguineous drainage. No fistula encountered. Prominent hemorrhoids of all 3 columns. Condition: stable Disposition: observation Brief History: 34-year-old male who presented with a recurrent perianal abscess. Discussed risk and benefits and patient agreed to proceed with exam under anesthesia of the rectum, possible incision and drainage of perianal abscess, possible seton placement. Procedure: Consent obtained in preop area. Patient brought into the operating room. General anesthesia was induced. Patient was placed in left lateral decubitus. The perineum was prepped and draped in usual sterile fashion. The recurrent perianal abscess on the right buttock was opened up. It was already spontaneously draining a 4 x 4 x 2 cm cavity was encountered. Serosanguineous fluid was drained. The cavity was irrigated with 200 cc of diluted peroxide 1:2. Adequate hemostasis was achieved using electrocautery. Digital rectal exam was unremarkable. A Zamudio retractor was placed which revealed prominent 3 column hemorrhoids. I did not encounter a fistula in ano. I then turned my attention to the abscess cavity which was irrigated with 300 cc of normal saline. Adequate hemostasis was confirmed. I then packed the wound tightly with half-inch iodoform. The patient woke up from anesthesia without any complications.
[2024-11-04] MEDS: fentaNYL 50 mcg/mL INJ 2mL IVP (16:10)
[2024-11-04] MEDS: vancomycin 2,000 MG/400 ML PIGGYBACK 200 MG IV (18:33)
--- NOTE | 2024-11-04 20:17 | PHA.VACGOAL ---
Vancomycin Goal - Goal Vancomycin Goal:: 10-15 mg/L Vancomycin Indication:: SSTI - Therapy Day of therpy:: Day [1]of [] . Actual body weight (kg): 136.078 kg - Data Labs: WBC 8.89 10^3/uL (3.29-11.43) 11/04/24 08:42 RBC 6.08 10^6/uL (3.85-5.65) H 11/04/24 08:42 Hgb 17.00 g/dL (11.27-16.99) H 11/04/24 08:42 Hct 51.2 % (37-53) 11/04/24 08:42 MCV 84.2 fl (82-101) 11/04/24 08:42 MCH 28.0 pg (27-33) 11/04/24 08:42 MCHC 33.2 g/dL (30-55) 11/04/24 08:42 RDW 12.3 % (12.1-15.1) 11/04/24 08:42 Sodium 139 mmol/L (136-145) 11/04/24 08:42 Potassium 4.1 mmol/L (3.5-5.1) 11/04/24 08:42 Chloride 103 mmol/L (98-107) 11/04/24 08:42 Carbon Dioxide 23 mmol/L (22-29) 11/04/24 08:42 Anion Gap 17.1 (5-19) 11/04/24 08:42 BUN 8 mg/dL (6-20) 11/04/24 08:42 Creatinine 0.9 mg/dL (0.7-1.2) 11/04/24 08:42 GFR Calculation 97.2 mL/min (90-130) 11/04/24 08:42 Treatment plan:: new consult Regimen:: New start vanocomcyin for Cellulitis. No prior vancomycin history found. Load dose of 2000 mg given. Started on maintenance dose of 1500 mg q8h.
[2024-11-05] MEDS: vancomycin 1,500 MG/300 ML PIGGYBACK 200 MG IV ×2 (00:37→07:52)
[2024-11-05 00:38] VITALS: RESP 18
[2024-11-05] MEDS: oxyCODONE 5 mg IR Tab/Cap PO ×2 (00:38→09:23)
[2024-11-05 04:00] VITALS: BP 150/83; PULSE 73; RESP 18; TEMP 36.9; O2SAT 94
--- NOTE | 2024-11-05 07:06 | P.PN_ITS ---
Subjective 2 Subjective: Patient feeling better Packing changed No cellulitis Vitals/I&O/Wt Last Vital Signs Temp 98.4 F 11/05/24 04:00 Pulse 73 11/05/24 04:00 Resp 18 11/05/24 04:00 BP 150/83 11/05/24 04:00 Pulse Ox 94 11/05/24 04:00 O2 Del Method Room Air 11/05/24 04:00 11/04/24 11/05/24 11/05/24 22:59 06:59 14:59 Intake Total 1880 / 2180 1300 / 3480 Output Total 650 / 670 Balance 1860 / 2160 650 / 2810 Weight last 48 hrs Weight 307 lb 8 oz Weight 300 lb Physical Exam 2 Narrative: Chest: Unlabored breathing room air. No lymphadenopathy. Heart: Regular rate and rhythm. Abdomen: Soft, nontender, nondistended. No masses or lymphadenopathy. Perineum: Perianal abscess cavity repacked. No cellulitis. Data 11/04/24 08:42 11/04/24 08:42 Micro: Microbiology 11/04/24 11:02 Blood Culture - Preliminary Blood SPECIMEN COLLECTED 11/04/24 10:12 Blood Culture - Preliminary Blood SPECIMEN COLLECTED A&P Assessment and plan (1) Perianal abscess: Plan 34-year-old male who presented with a recurrent perianal abscess. Instructed on how to pack wound. Follow-up in 2 weeks. Cleared for discharge. PDMP PDMP Reviewed: Last Reviewed 11/05/24 12:10 EDT by Christopher Cornell MD Attestations 2 Medical Necessity Statement*: IV fluids, IV antibiotics, IV pain meds Coding Level of Care Code 26765 Diagnoses Perianal abscess K61.0
[2024-11-05 08:00] VITALS: BP 159/89; PULSE 67; RESP 18; TEMP 36.9; O2SAT 96
[2024-11-05 09:23] VITALS: RESP 16
--- NOTE | 2024-11-05 10:10 | PC.CHAP ---
Pastoral Care Encounter/Spiritual Assessment Type of Contact [] Declined slp visit [] Patient/Family/Request visit [] Outpatient visit [] Follow-up visit [] Physician referral [] Code/Alert [x] Routine visit [] Staff referral [] Actively dying [] Patient sleeping [x] Family support [] [] Out of room [] Palliative care [] [] Receiving care in room [] Pre-surgical visit [] Trauma [] Long length of stay [] ICU visit [] Other: Relational/Emotional Strength [x] Patient feels connected with others/family/visitors/staff [] Distress [] Loneliness/isolation [] Abandonment Spirituality of Patient [x] Person of Elsa [] Attends Jain of their Elsa [x] Believes in Prayer [] Reads Bible or Mandaen materials [] There are Spiritual issues to be addressed Rock Wool Applicator Interventions [x] Prayer [x] Active listening [x] Non-anxious presence [x] Spiritual/emotional support [] Crisis/trauma care [] Spiritual counseling [] Bereavement support [] Provided bereavement packet [] Provided Bible/devotional materials [] Provided toy/stuffed animal, coloring book to patient or family member [] Provided Communion [] Anointing/[place] [] Salvation [x] Completed spiritual assessment [] Other: Impact on Illness or Injury [] Angry [] Fearful [] Anxious [] Often cries [] Exhaustion [] Unable to work [] Unable to attend congregation [] Unable to walk/stand [] Unable to read [] Unable to drive [] Unable to eat/drink [] Unable to sleep [] Unable to be with family [] Patient intubated [] Other: Summary Time spent with patient 5 min
--- NOTE | 2024-11-05 11:10 | P.DS_ITS ---
Discharge Providers Date of Admission: 11/04/24 10:35 Date of Discharge: November 05, 2024 Attending Provider at Admission: Christopher Cornell MD Attending Provider at Discharge: Christopher Cornell MD Primary Care Provider: Madison Girard Diagnoses at Discharge Discharge Diagnosis (1) Cellulitis and abscess of buttock: Status: Resolved Reason for Visit Reason for Visit: tailbone problems Hospital Course Hospital Course 34-year-old male who presented with a recurrent perianal abscess. Taken to the OR for exam under anesthesia of the rectum and incision and drainage of perineal abscess. Patient discharged the following day after packing change and education on how to do it twice daily. Follow-up in 2 weeks. Physical Exam Narrative: Chest: Unlabored breathing room air. No lymphadenopathy. Heart: Regular rate and rhythm. Abdomen: Soft, nontender, nondistended. No masses or lymphadenopathy. Perineum: Perianal abscess cavity packed. No cellulitis. Discharge Data Studies Completed and Pending Completed Studies During Hospitalization Category Date Time Status CT pelvis w con* [id number] Stat Cat Scan 11/04/24 09:41 Completed US soft tissue and or extremity [US soft tissue/ Ultrasound 11/04/24 07:58 Completed extremity [id number]] Stat Pending at discharge Category Date Time Status Blood Culture Stat Lab 11/04/24 11:02 Results Radiology Impressions Soft Tissue Ultrasound 11/04/24 07:58 IMPRESSION: 1. Complex inflammatory collection along the gluteal cleft and extending greater to the RIGHT. Collection consistent with an abscess with a large amount of internal debris. The wall is thickened but does appear to be intact. 2. Phlegmonous inflammatory collection was noted on a prior CT from 08/26/2024 in this location. The abscess has become formed and discrete since then. Pelvis CT 11/04/24 09:41 IMPRESSION: 1. Small peripherally enhancing abscess along the RIGHT gluteal cleft has developed compared to previous. This measures 3.0 x 1.6 cm. 2. Previously described extensive surrounding induration has significantly improved compared to previous. Previously described fistulous tract to the external anal sphincter is less well defined today. Laboratory Results WBC 8.89 10^3/uL (3.29-11.43) 11/04/24 08:42 RBC 6.08 10^6/uL (3.85-5.65) H 11/04/24 08:42 Hgb 17.00 g/dL (11.27-16.99) H 11/04/24 08:42 Hct 51.2 % (37-53) 11/04/24 08:42 MCV 84.2 fl (82-101) 11/04/24 08:42 MCH 28.0 pg (27-33) 11/04/24 08:42 MCHC 33.2 g/dL (30-55) 11/04/24 08:42 RDW 12.3 % (12.1-15.1) 11/04/24 08:42 Plt Count 171 10^3/cmm (157-399) 11/04/24 08:42 MPV 11.7 fL (7.4-10.4) H 11/04/24 08:42 Neut % (Auto) 65.9 % 11/04/24 08:42 Lymph % (Auto) 24.5 % 11/04/24 08:42 [place] % (Auto) 6.5 % 11/04/24 08:42 Eos % (Auto) 2.0 % 11/04/24 08:42 Baso % (Auto) 0.7 % 11/04/24 08:42 Neut # (Auto) 5.85 10^3/uL (1.8-7.7) 11/04/24 08:42 Lymph # (Auto) 2.2 10^3/uL (0.8-4.8) 11/04/24 08:42 [place] # (Auto) 0.6 10^3/uL (0.2-0.9) 11/04/24 08:42 Eos # (Auto) 0.2 10^3/uL (0.0-0.8) 11/04/24 08:42 Baso # (Auto) 0.1 10^3/uL (0.0-0.1) 11/04/24 08:42 Nucleated RBC % (auto) 0 % 11/04/24 08:42 Nucleated RBCs # 0.0 /100WBC 11/04/24 08:42 Sodium 139 mmol/L (136-145) 11/04/24 08:42 Potassium 4.1 mmol/L (3.5-5.1) 11/04/24 08:42 Chloride 103 mmol/L (98-107) 11/04/24 08:42 Carbon Dioxide 23 mmol/L (22-29) 11/04/24 08:42 Anion Gap 17.1 (5-19) 11/04/24 08:42 BUN 8 mg/dL (6-20) 11/04/24 08:42 Creatinine 0.9 mg/dL (0.7-1.2) 11/04/24 08:42 GFR Calculation 97.2 mL/min (90-130) 11/04/24 08:42 Glucose 162 mg/dL (65-115) H 11/04/24 08:42 Calculated Osmolality 290 mOsm/kg (285-295) 11/04/24 08:42 Lactic Acid 1.2 mmol/L (0.5-2.2) 11/04/24 11:02 Calcium 9.1 mg/dL (8.5-10.5) 11/04/24 08:42 Total Bilirubin 0.4 mg/dL (0.15-1.2) 11/04/24 08:42 AST 26 U/L (0-40) 11/04/24 08:42 ALT 50 U/L (0-41) H 11/04/24 08:42 Alkaline Phosphatase 117 U/L (40-130) 11/04/24 08:42 Total Protein 7.2 g/dL (6.6-8.7) 11/04/24 08:42 Albumin 4.3 g/dL (3.5-5.2) 11/04/24 08:42 Globulin 2.9 g/dL (1.3-4.6) 11/04/24 08:42 Urine Color Yellow (Yellow) 11/04/24 09:44 Urine Appearance Clear (CLEAR) 11/04/24 09:44 Urine pH 6.0 (5-7) 11/04/24 09:44 Ur Specific [place] 1.025 (1.005-1.030) 11/04/24 09:44 Urine Protein 3+ (Negative) A 11/04/24 09:44 Urine Glucose (UA) Negative (Normal) 11/04/24 09:44 Urine Ketones Trace (Negative) 11/04/24 09:44 Urine Blood Negative (Negative) 11/04/24 09:44 Urine Nitrate Negative (Negative) 11/04/24 09:44 Urine Bilirubin Negative (Negative) 11/04/24 09:44 Urine Urobilinogen 1.0 mg/dL (Negative) 11/04/24 09:44 Ur Leukocyte Esterase Negative (Negative) 11/04/24 09:44 Urine RBC 0-2 /hpf (0-2) 11/04/24 09:44 Urine WBC 0-5 /hpf (0-5) 11/04/24 09:44 Ur Squamous Epith Cells 0-5 /hpf (0-5) 11/04/24 09:44 Amorphous Sediment Not Reportable 11/04/24 09:44 Urine Bacteria None seen /hpf (NONE) 11/04/24 09:44 Hyaline Casts 0.40 /lpf 11/04/24 09:44 Vitals Last Vital Signs Temp 98.4 F 11/05/24 08:00 Pulse 67 11/05/24 08:00 Resp 16 11/05/24 09:23 BP 159/89 11/05/24 08:00 Pulse Ox 96 11/05/24 08:00 O2 Del Method Room Air 11/05/24 08:00 Discharge Plan Discharge Patient Disposition: Home Condition: Stable Prescriptions: New oxycodone 5 mg tablet 5 mg PO Q6H PRN (Reason: pain) 5 Days Qty: 10 0RF Continued acetaminophen [Tylenol Extra Strength] 500 mg Tablet 500 mg PO QID PRN (Reason: Fever Or Pain) Discharge Orders: Discharge Order (Routine); Ordered 11/05/24 Ordered By: Christopher Cornell Referrals: Christopher Cornell MD [Physician, General Surgery] - 11/18/24 8:55 am Referral Note: Madison Girard PA [Primary Care Provider, Physicians Insurance Risk Manager] Referral Note: Please contact primary care to set up a hospital follow up appointment. Discharge Diet: Usual diet Discharge Activity: Resume usual activity Patient Instructions: Oxycodone, Rapid Release (By mouth), Acute Wound Care (DC), Rectal Abscess (GEN), Opioid Safety, Post Anesthesia Care Activity Restrictions/Additional Instructions: Pack wound twice daily with 1 inch nu gauze Sitz baths daily Call the office if you have any questions Discharge Attestations Time Spent in Discharge Care*: greater than 30 min Quality Metrics Clinical Quality Measures [ No reported AMI, CVA or VTE this stay] Coding Level of Care Code Acute Code for Chg Fwd Diagnoses Cellulitis and abscess of buttock L02.31; L03.317
[2024-11-05 11:29] VITALS: BP 159/89; PULSE 67; RESP 16; TEMP 36.9; O2SAT 96
== END 2024-11-05 11:30 | disposition home or self-care (01) ==
LOC: ER 09:05 → ER IP 10:36 → MEDSURG 12:11
PROVIDERS: Admitting Provider Student in an Organized Health Care Education/Training Program; Emergency Provider Family Medicine; PCP Physician Assistant; Visit Provider Student in an Organized Health Care Education/Training Program
PROC: (CPT 46040; principal; 2024-11-04 15:20)
DX: L02.31 Cutaneous abscess of buttock (principal); L03.317 Cellulitis of buttock; F17.200 Nicotine dependence, unspecified, uncomplicated; F12.920 Cannabis use, unspecified with intoxication, uncomplicated; K64.9 Unspecified hemorrhoids
CPT/HCPCS: 46050; 36415; 72193; 76882; 80053; 81001; 83605; 85025; 87040; 96365; 96367; 96375; 99285; A4216; G0378; J0744; J1885; J2270; J2405; J2704; J3010; J3370; J3372; J3490; J7030; J9999

== ENCOUNTER 2025-01-30 10:46 | Emergency (ER) | payer SELFPAY ==
[2025-01-30 10:48] VITALS: BP 160/89; PULSE 98; RESP 16; TEMP 36.9; O2SAT 97; BMI 40.6
--- OUTSIDE RECORDS SUMMARY | 2025-01-30 10:55 | XMS_ITS | Clinical Summary ---
Author Organization [facility] Address [address] [place] [address] Care Team Providers Care Helix Coil Winder Name Role Phone Non-Staff, Physician Primary Care Provider Unava ilable Allergies No known active allergies Medications hydrochlorothiaz skyler (HYDRODIURIL) 12.5 mg Oral tablet Take 1 Tab by mouth daily. 30 Tab 5 09/10/2009 Active ibuprofen (MOTRIN) 600 mg Oral tablet Take 1 Tab by mouth every 8 hours as needed for Pain. Take with food 90 Tab 4 09/10/2009 Active amlodipine (NORVASC) 10 mg Oral tablet Take 1 Tab by mouth daily. 30 Tab 6 10/13/2009 Active Active Problems Problem Noted Date Diagnosed Date Obesity 02/10/2009 HTN (hypertension) 02/09/2009 Hx of Drug Abuse 02/09/2009 Overview (02/09/2009): Drug rehab x 2 Tobacco abuse 02/09/2009 Immunizations Immunization Administration Dates Next Due (ADACEL/BOOSTRIX)(10 YR UP) TDAP VACCINE, 0.5ML, IM 02/28/2007 Hepatitis A Vaccine 02/28/2007 Influenza Vaccine Split 3+ Yrs IM VFC 03/12/2009 Social History Tobacco Use Types Packs/Day Years Used Date Smoking Tobacco: Every Day Cigarettes 0.5 3 Alcohol Use Standard Drinks/Week Comments No 0 (1 standard drink = 0.6 oz pur e alcohol) Sex and Gender Information Value Date Recorded Sex Assigned at Not on file 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 Gender Identity Not on file Sexual Orientation Not on file Last Filed Vital Signs Vital Sign Reading Time Taken Comments Blood Pressure 132/98 09/10/2009 9:55 AM CDT Pulse 53 09/10/2009 9:55 AM CDT Temperature 36.6 C (97.8 F) 09/10/2009 9:55 AM CDT Respiratory Rate 18 09/10/2009 9:55 AM CDT Oxygen Saturation 98% 09/10/2009 9:55 AM CDT Inhaled Oxygen Concentration - - Weight 123.4 kg (272 lb) 09/10/2009 9:55 AM CDT Height 182.9 cm (6') 09/10/2009 9:55 AM CDT Body Mass Index 36.89 09/10/2009 9:55 AM CDT Plan of Treatment Health Maintenance Due Date Last Done Comments HPV VACCINES (1 - Male 3-dose series) 2006 HEPATITIS B VACCINES (1 of 3 - 19+ 3-dose series) 07/20 DTAP/TDAP/TD VACCINES (2 - Td or Tdap) 02/28/2017 INFLUENZA VACCINE (#1) 2025 03/12/2009 [place] Care Teams Helix Coil Winder Relationship Specialty Start Date End Date Non-Staff, Physician NO ADDRESS ON FILE PCP - General 10/16/13
--- NOTE | 2025-01-30 11:13 | W.ED.SKABFB ---
HPI - Skin/Abscess/Foreign Bdy General: Chief complaint: Skin/Abscess/Foreign Body Stated complaint: Cist reinfected R butox cheek Time Seen by Provider: 01/30/25 10:54 Source: patient Mode of arrival: ambulatory Limitations: no limitations History of Present Illness: This patient presents to the emergency department by private vehicle because he feels some soreness and stinging pain in his area of his gluteal cleft and buttock region that was previously treated for pilonidal cyst earlier this summer. He had a I&D and then a repeat procedure done earlier and had just returned back to work approximately 3 days ago. He states that over the past 3 days he has noted increasing symptoms. He denies any fevers or chills or other constitutional symptoms at this time. His work is primarily a inventory associate and driver but he states he does not spend more than just a few minutes sitting at a time and then gets up and moves around and makes a delivery. He denies any history of diabetes he denies any prior history of pilonidal cyst or MRSA or other skin infections prior to this episode earlier this year. Severity: similar to previous episodes Quality: aching Associated symptoms: Deny chills, fever(s), nausea or vomiting Related Data Home Medications ?Medication ?Instructions ?Recorded ?Confirmed acetaminophen 500 mg tablet 500 mg PO QID PRN Fever Or Pain 08/26/24 01/30/25 (Tylenol Extra Strength) Previous Rx's ?Medication ?Instructions ?Recorded doxycycline hyclate 100 mg tablet 100 mg PO BID 5 days #10 tabs 01/30/25 naproxen sodium 550 mg tablet 550 mg PO BID PRN pain #14 tabs 01/30/25 (Anaprox DS) Allergies Allergy/AdvReac Type Severity Reaction Status Date / Time Penicillins Allergy Severe ALGY-Anaphy Verified 01/30/25 10:50 laxis Review of Systems General: Reports: 10 or more systems reviewed and unremarkable except in HPI and below Const: Denies: fever(s) or chills GI: Denies: abdominal pain, nausea, vomiting, hematemesis, rectal swelling, rectal itching, change in stool character, hematochezia or melena : Denies: flank pain, difficulty urinating, dysuria or urinary frequency Skin/Breast: Reports: lesions PFSH ED PFSH: Medical History No pertinent family history Surgical History No pertinent past surgical history Social History Smoking and tobacco/nicotine status: current every day tobacco/nicotine user Physical Exam Narrative: EXAM NARRATIVE: Patient is alert in no acute distress comfortable and cooperative during the evaluation. Const: COMMON NORMALS: no acute distress, patient oriented x3, healthy appearing and alert GENERAL APPEARANCE: cooperative and comfortable NUTRITIONAL APPEARANCE: overweight HENMT: COMMON NORMALS: moist oral mucous membranes Eye: COMMON NORMALS: Equal, round and reactive pupils present PUPIL: Yes Equal, round and reactive pupils present Neck/C-Spine: COMMON NORMALS: full ROM Resp: COMMON NORMALS: normal respiratory effort and No use of accessory muscles EFFORT & INSPECTION: Yes able to speak in complete sentences Cardio: COMMON NORMALS: Peripheral pulses 2+ throughout PERIPHERAL PULSES: Peripheral pulses 2+ throughout GI: COMMON NORMALS: Normal to inspection, nondistended, normoactive bowel sounds present and Soft to palpation PALPATION: Yes Soft to palpation RECTAL EXAM: Yes visual inspection normal OTHER: Patient's gluteal and perianal regions were evaluated. He has some external hemorrhoidal skin tags but no inflammation or erythema. He has a healed cruciate scar on his right buttock lateral to the gluteal cleft. There is no surrounding erythema or drainage. On palpation he has tenderness at the margin of this scar without any fluctuance noted. There is no draining sinuses etc. Back/Pelvis: COMMON NORMALS: no thoracic nor lumbar tenderness and thoraco-lumbar ROM normal Extremity: COMMON NORMALS: normal to inspection and full ROM Neuro: COMMON NORMALS: patient oriented x3, moves all extremities and no focal motor deficits SENSORIUM/ORIENTATION: Yes alert Skin: COMMON NORMALS: no rashes or lesions noted and turgor normal NARRATIVE SKIN EXAM: Right buttock tenderness without any skin changes other than scarring is noted. GENERAL SKIN EXAM: no rashes or lesions noted and turgor normal Course Reevaluation(s): Reevaluation #1: POCUS was used to evaluate the tissues in the right buttock region. There was a small isolated fluid collection noted at the inferior portion deep to the scar. Discussed treatment options with the patient including needle aspiration of this potential fluid collection which she agreed to. The area was cleansed with Betadine and skin anesthesia was obtained with 2% lidocaine. Using an 18-gauge needle and a 10 cc syringe area was entered and a small amount of serosanguineous somewhat bloody fluid was aspirated approximately 1 cc. Patient was uncomfortable during the procedure but tolerated the procedure. It is patient has a small amount of fluid collection with a minimal amount aspirated today. Will go ahead and plan on placement of 5-day course of antibiotics nonsteroidal anti-inflammatories with return precautions to the emergency department if not improved worsening symptoms and if he is not improved by Monday he should contact his general surgeon for reevaluation. He voiced understanding. Time: 11:35 Vital Signs: Vital signs: Vital Signs Temperature 98.5 F 01/30/25 10:48 Pulse Rate 98 01/30/25 10:48 Respiratory Rate 16 01/30/25 10:48 Blood Pressure 160/89 01/30/25 10:48 Pulse Oximetry 97 01/30/25 10:48 Oxygen Delivery Me thod Room Air 01/30/25 10:48 MDM - Skin/Abscess/Foreign Bdy Medicial Decision Making Patient is presented as noted in HPI. Differential included potential reaccumulation of abscess, soft tissue soreness, seroma etc. Physical exam did not reveal any signs of cellulitis or other concerning findings. Bedside ultrasound was used isolated approximately 1 to 2 cc area of fluid collection subcutaneously in the area of previous I&D. Needle aspiration was performed with minimal amount of fluid collected. Does not appear to be septic or have any evidence at this time of a deep space abscess etc. Certainly not a perirectal abscess but it appears to be a isolated subcutaneous fluid collection possible reaccumulating abscess. Will go ahead and place him on 5-day course of doxycycline and Anaprox for pain control with return precautions. No radiology studies performed this visit Discharge Plan Discharge Patient Disposition: Home Clinical Impression: Abscess of skin or subcutaneous tissue Qualifiers: Site of cutaneous abscess: trunk Condition: Stable Prescriptions: New doxycycline hyclate 100 mg tablet 100 mg PO BID 5 Days Qty: 10 0RF naproxen sodium [Anaprox DS] 550 mg tablet 550 mg PO BID PRN (Reason: pain) Qty: 14 0RF No Action acetaminophen [Tylenol Extra Strength] 500 mg Tablet 500 mg PO QID PRN (Reason: Fever Or Pain) Discharge Orders: Discharge ED (Routine); Ordered 01/30/25 Ordered By: Vipul Diehl Referrals: Madison Girard PA [Primary Care Provider, Physicians Molded Grid And Parts Inspector] Discharge Diet: Usual diet Discharge Activity: Increase activity as tolerated Patient Instructions: Opioid Safety, Pain Management, Patient Portal & Felipe Instructions Activity Restrictions/Additional Instructions: As we discussed you have a small fluid collection in the region of your previous abscess drainage. We have placed you on 2 medications 1 is an antibiotic to take twice daily for 5 days and the other is a pain medicine that you may take twice daily with food for the next 5 to 7 days. If your symptoms worsen with increasing redness, development of fever pain etc. return to the Emergency Department immediately otherwise if your symptoms do not improved by Monday of this coming week contact your surgeon for further evaluation. Again you are welcome to return to the Emergency Department anytime for any concerns. Stand Alone Forms: Work/School Release Print Language: Estonian Coding Level of Care Code ED Catering Administrative Assistant for Saran Espitia
--- NOTE | 2025-01-30 11:20 | PC.PHAR ---
Pt takes no medications on a regular basis. Pt had several medications up to and post surgery from August 2024 to October 2024 but is no longer taking any of them.
[2025-01-30 11:46] VITALS: BP 160/80; PULSE 95; O2SAT 97
== END 2025-01-30 11:47 | disposition home or self-care (01) ==
PROVIDERS: Emergency Provider Emergency Medicine; PCP Physician Assistant
DX: L02.31 Cutaneous abscess of buttock (principal); Z72.0 Tobacco use
CPT/HCPCS: 99283

== ENCOUNTER 2025-02-01 14:06 | Emergency (ER) | payer SELFPAY ==
--- OUTSIDE RECORDS SUMMARY | 2025-02-01 14:10 | XMS_ITS | Clinical Summary ---
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
[2025-02-01 14:29] VITALS: BP 166/102; PULSE 88; RESP 18; TEMP 36.6; O2SAT 98; BMI 40.6
[2025-02-01 16:35] VITALS: BP 149/102; PULSE 66; TEMP 36.6; O2SAT 98
--- NOTE | 2025-02-01 16:45 | CTR_ITS ---
PROCEDURE INFORMATION: Exam: CT Abdomen And Pelvis With Contrast Exam date and time: 02/01/2025 5:23 PM Age: 34 years old Clinical indication: Pain; Prior surgery; Surgery date: 6+ months; Surgery type: Perianal x 2, appy; Additional info: Perianal pain, history of abscess TECHNIQUE: Imaging protocol: Computed tomography of the abdomen and pelvis with contrast. Radiation optimization: All CT scans at this facility use at least one of these dose optimization techniques: automated exposure control; mA and/or kV adjustment per patient size (includes targeted exams where dose is matched to clinical indication); or iterative reconstruction. Contrast material: OMNIPAQUE 350; Contrast volume: 100 ml; Contrast route: INTRAVENOUS (IV); COMPARISON: CT pelvis w con* [id number] 11/04/2024 10:16 AM RADIATION DOSE METRICS: Total DLP (mGy-cm): 1373.63 FINDINGS: Liver: The liver is enlarged, measuring 20.5 cm craniocaudal. Hepatic steatosis. Gallbladder and biliary ducts: Normal. No calcified stones. No ductal dilation. Pancreas: Normal. No ductal dilation. Spleen: Normal. No splenomegaly. Adrenal glands: Normal. No mass. Kidneys and ureters: Normal. No hydronephrosis. Stomach and bowel: No bowel obstruction. Appendix: No evidence of appendicitis. Intraperitoneal space: Unremarkable. No free air. No significant fluid collection. Vasculature: Unremarkable. No abdominal aortic aneurysm. Lymph nodes: Unremarkable. No enlarged lymph nodes. Urinary bladder: Unremarkable as visualized. Reproductive: Unremarkable as visualized. Bones/joints: Unremarkable. No acute fracture. Soft tissues: Slight interval decrease in size of the previously seen abscess along the right gluteal fold which now measures about 2.5 x 1.5 cm, previously 3.0 x 1.6 cm. Mild surrounding fat stranding. The inflammatory changes appear to extend to the level of the anus, though no definite fistulous tract is identified on this examination. CT/CT abdomen pelvis w con* [id number] IMPRESSION: 1. Interval decrease in size of an abscess along the right gluteal cleft, now measuring up to 2.5 cm, previously 3.0 cm. Mild surrounding inflammatory changes. 2. Hepatomegaly with hepatic steatosis.
--- NOTE | 2025-02-01 17:03 | ED_ITS ---
Documented by User: WILLIAMS Hall 02/01/25 19:18 HPI - Skin/Abscess/Foreign Bdy 2 General: Chief complaint: Skin/Abscess/Foreign Body Stated complaint: lump on back Time Seen by Provider: 02/01/25 15:10 Source: patient Mode of arrival: ambulatory Limitations: no limitations History of Present Illness: Patient is a 34-year-old male who presents to the emergency department complaining of recurrent buttock pain secondary to perianal abscess. On 11/04 at this year, patient was diagnosed with a perianal abscess and admitted for surgery with Dr. Cornell. He states that he had this packed for a month, eventually was removed and he had not had issues until a few days ago, prompting him to come to the ED. Bedside ultrasound had showed small fluid collection but despite needle drainage here there was no relief of pain he was started on antibiotics and discharged home. States pain is only gotten more severe, and he felt like it has been spontaneously draining. He does not report any systemic symptoms of illness such as fever or malaise/chills, but states that the pain is severe 10/10. Denies any changes in bowel habits. complaint: abscess/boil (Perianal) Onset (ago): day(s) Context: other (Surgery on 11/04 for perianal abscess drainage in the OR) Associated symptoms: Deny chills, fever(s), nausea or vomiting Treatments prior to arrival: antibiotic and NSAID Related Data Home Medications ?Medication ?Instructions ?Recorded ?Confirmed acetaminophen 500 mg tablet 500 mg PO QID PRN Fever Or Pain 08/26/24 02/01/25 (Tylenol Extra Strength) Previous Rx's ?Medication ?Instructions ?Recorded doxycycline hyclate 100 mg tablet 100 mg PO BID 5 days #10 tabs 01/30/25 naproxen sodium 550 mg tablet 550 mg PO BID PRN pain # 14 tabs 01/30/25 (Anaprox DS) hydrocodone 7.5 mg-acetaminophen 1 tab PO Q8H PRN pain #14 tabs 02/01/25 325 mg tablet Allergies Allergy/AdvReac Type Severity Reaction Status Date / Time Penicillins Allergy Severe ALGY-Anaphy Verified 01/30/25 10:50 laxis Review of Systems 2 General: Reports: 10 or more systems reviewed and unremarkable except in HPI and below Const: Denies: fever(s), chills, change in appetite, change in weight or diaphoresis ENMT: Denies: throat pain or hoarseness Card: Denies: chest pain, palpitations or lightheadedness Resp: Denies: dyspnea, productive cough or wheezing GI: Reports: rectal pain; Denies: abdominal pain, nausea, vomiting, diarrhea, constipation, bloating, change in stool character or hematochezia : Denies: flank pain, difficulty urinating, dysuria, urinary frequency or urinary urgency Musc: Denies: neck pain or back pain Skin/Breast: Reports: skin pain, skin tenderness and non-healing lesions; Denies: rash Neuro: Denies: headache(s) or dizziness PFSH ED 2 PFSH: Medical History No pertinent family history Surgical History No pertinent past surgical history Social History Smoking and tobacco/nicotine status: current every day tobacco/nicotine user Physical Exam 2 Const: COMMON NORMALS: patient oriented x3, alert and well nourished G ENERAL APPEARANCE: cooperative NUTRITIONAL APPEARANCE: obese O RIENTATION/CONSCIOUSNESS: Yes awake OTHER: Appears uncomfortable secondary to pain HENMT: COMMON NORMALS: normocephalic and atraumatic HEAD & SCALP: n ormocephalic and atraumatic Neck/C-Spine: COMMON NORMALS: full ROM, no lymphadenopathy, supple and no meningeal signs Resp: COMMON NORMALS: normal respiratory effort, No use of accessory muscles and clear to auscultation bilaterally AUSCULTATION: clear to auscultation bilaterally Cardio: COMMON NORMALS: regular rate and regular rhythm RATE: regular rate RHYTHM: regular rhythm GI: OTHER: External hemorrhoids, see skin exam Extremity: COMMON NORMALS: full ROM and capillary refill normal Neuro: COMMON NORMALS: patient oriented x3 SENSORIUM/ORIENTATION: Yes alert MENINGEAL SIGNS: Yes no meningeal signs Skin: COMMON NORMALS: turgor normal NARRATIVE SKIN EXAM: Postoperative incision just lateral to the intergluteal cleft, there is severe tenderness to palpation adjacent to this incision, no active drainage at this time. Erythematous. Indurated, no appreciable fluctuance by examination. GENERAL SKIN EXAM: turgor normal Course 2 Vital Signs: Vital signs: Vital Signs Temperature 97.8 F 02/01/25 16:35 Pulse Rate 66 02/01/25 16:35 Respiratory Rate 18 02/01/25 14:29 Blood Pressure 149/102 02/01/25 16:35 Pulse Oximetry 98 02/01/25 16:35 Oxygen Delivery Me thod Room Air 02/01/25 16:35 MDM - Skin/Abscess/Foreign Bdy Medicial Decision Making Patient presenting with continued buttock pain, has been dealing with perianal abscess since October in which she had it procedurally drained in the OR and packed for a month. Was seen in the emergency department couple days ago for the pain, attempt with needle aspiration was unsuccessful he was discharged on doxycycline and diclofenac. There was some erythema and induration just adjacent to the previous incision, likely scar tissue but with the amount of new tenderness cannot rule out this is an adjacent abscess. CT scan showing that there is actually decrease in the size of the abscess along the right gluteal cleft with mild inflammatory changes and no signs of a fistula. Attempt at drainage of the area of new tenderness and induration was unsuccessful and the abscess is too deep for safe drainage here in the ED, and he is going to be referred to general surgery for a more definitive procedural drainage if warranted. Will give him some [place] for home in the meantime, and he is instructed to follow-up early next week. I also spoke to Dr. Reilly, general surgeon, about this patient and agrees. He will continue to take his doxycycline. I also instructed him to take MiraLAX to avoid any significant rectal pain with defecation. Lab Data 02/01/25 17:17 02/01/25 17:17 Radiology Impressions Abdomen/Pelvis CT 02/01/25 16:45 IMPRESSION: 1. Interval decrease in size of an abscess along the right gluteal cleft, now measuring up to 2.5 cm, previously 3.0 cm. Mild surrounding inflammatory changes. 2. Hepatomegaly with hepatic steatosis. Laboratory Results WBC 11.41 10^3/uL (3.29-11.43) 02/01/25 17:17 RBC 6.33 10^6/uL (3.85-5.65) H 02/01/25 17:17 Hgb 17.20 g/dL (11.27-16.99) H 02/01/25 17:17 Hct 51.5 % (37-53) 02/01/25 17:17 MCV 81.4 fl (82-101) L 02/01/25 17:17 MCH 27.2 pg (27-33) 02/01/25 17:17 MCHC 33.4 g/dL (30-55) 02/01/25 17:17 RDW 12.2 % (12.1-15.1) 02/01/25 17:17 Plt Count 181 10^3/cmm (157-399) 02/01/25 17:17 MPV 12.1 fL (7.4-10.4) H 02/01/25 17:17 Neut % (Auto) 57.2 % 02/01/25 17:17 Lymph % (Auto) 31.8 % 02/01/25 17:17 [place] % (Auto) 8.1 % 02/01/25 17:17 Eos % (Auto) 1.8 % 02/01/25 17:17 Baso % (Auto) 0.7 % 02/01/25 17:17 Neut # (Auto) 6.54 10^3/uL (1.8-7.7) 02/01/25 17:17 Lymph # (Auto) 3.6 10^3/uL (0.8-4.8) 02/01/25 17:17 [place] # (Auto) 0.9 10^3/uL (0.2-0.9) 02/01/25 17:17 Eos # (Auto) 0.2 10^3/uL (0.0-0.8) 02/01/25 17:17 Baso # (Auto) 0.1 10^3/uL (0.0-0.1) 02/01/25 17:17 Nucleated RBC % (auto) 0 % 02/01/25 17:17 Nucleated RBCs # 0.0 /100WBC 02/01/25 17:17 Sodium 139 mmol/L (136-145) 02/01/25 17:17 Potassium 3.7 mmol/L (3.5-5.1) 02/01/25 17:17 Chloride 103 mmol/L (98-107) 02/01/25 17:17 Carbon Dioxide 25 mmol/L (22-29) 02/01/25 17:17 Anion Gap 14.7 (5-19) 02/01/25 17:17 BUN 7 mg/dL (6-20) 02/01/25 17:17 Creatinine 0.9 mg/dL (0.7-1.2) 02/01/25 17:17 GFR Calculation 97.2 mL/min (90-130) 02/01/25 17:17 Glucose 98 mg/dL (65-115) 02/01/25 17:17 Calculated Osmolality 286 mOsm/kg (285-295) 02/01/25 17:17 Calcium 9.7 mg/dL (8.5-10.5) 02/01/25 17:17 Total Bilirubin 0.4 mg/dL (0.15-1.2) 02/01/25 17:17 AST 22 U/L (0-40) 02/01/25 17:17 ALT 41 U/L (0-41) 02/01/25 17:17 Alkaline Phosphatase 122 U/L (40-130) 02/01/25 17:17 Total Protein 7.1 g/dL (6.6-8.7) 02/01/25 17:17 Albumin 4.4 g/dL (3.5-5.2) 02/01/25 17:17 Globulin 2.7 g/dL (1.3-4.6) 02/01/25 17:17 All radiology interpretation(s) finalized by discharge Discharge Plan Discharge Patient Disposition: Home Clinical Impression: Abscess of skin or subcutaneous tissue Qualifiers: Site of cutaneous abscess: buttock Qualified Code(s): L02.31 - Cutaneous abscess of buttock Condition: Stable Prescriptions: New hydrocodone-acetaminophen 7.5-325 mg tablet 1 tab PO Q8H PRN (Reason: pain) Qty: 14 0RF No Action acetaminophen [Tylenol Extra Strength] 500 mg Tablet 500 mg PO QID PRN (Reason: Fever Or Pain) doxycycline hyclate 100 mg tablet 100 mg PO BID 5 Days Qty: 10 0RF naproxen sodium [Anaprox DS] 550 mg tablet 550 mg PO BID PRN (Reason: pain) Qty: 14 0RF Discharge Orders: Discharge ED (Routine); Ordered 02/01/25 Ordered By: Segundo Story Referrals: Madison Girard PA [Primary Care Provider, [employer] Installer] Patient Instructions: Opioid Safety, Pain Management, Patient Portal & Felipe Instructions Activity Restrictions/Additional Instructions: Perianal Abscess Discharge Diagnosis and Current Status: The patient is a 34-year-old male with a history of recurrent perianal abscess, presenting with buttock pain adjacent to a previous surgical incision. Imaging demonstrates interval decrease in abscess size, but a persistent deep abscess remains adjacent to the anal region. Attempted drainage in the emergency department was unsuccessful. The patient is being referred to general surgery for definitive procedural drainage. Discharge Instructions: - Follow-Up and Surgical Referral: - The patient must follow up with general surgery as soon as possible for further evaluation and definitive drainage. Prompt surgical management is the standard of care for persistent or recurrent anorectal abscesses, as recommended by the [place] [employer]. - If symptoms worsen (increasing pain, fever, spreading redness, or new drainage), or if there are signs of systemic illness (chills, rigors, confusion), the patient should return to the emergency department immediately. - Wound Care: - Keep the perianal area clean and dry. Gently cleanse the area with warm water after bowel movements and pat dry. - Avoid aggressive cleaning or use of irritants near the wound. - Pain Management: - Hydrocodone has been prescribed for pain control. Take as directed, and do not exceed the prescribed dose. Use the lowest effective dose for the shortest necessary duration to minimize opioid-related adverse effects. - Acetaminophen or nonsteroidal anti-inflammatory drugs (NSAIDs) may be used as adjuncts if not contraindicated. - Antibiotic Therapy: - Continue doxycycline as prescribed. While routine antibiotics are not recommended after drainage of uncomplicated anorectal abscesses, selective use is appropriate in cases of recurrent abscess, deep or complex collections, or in the presence of surrounding cellulitis or systemic symptoms. - Complete the full course unless otherwise directed. Monitor for side effects such as gastrointestinal upset or rash. - Bowel Management: - Maintain soft stools to reduce straining and discomfort. Consider a fiber supplement and adequate hydration. - If constipation occurs, a gentle stool softener may be used. - Activity: - Limit strenuous activity until evaluated by surgery. Walking and light activity are encouraged as tolerated. - Signs and Symptoms Warranting Immediate Medical Attention: - Worsening pain, swelling, or redness in the perianal area - Fever >38.5?C (101.3?F) - Chills, rigors, or feeling unwell - New or increased drainage, especially if foul-smelling or purulent - Difficulty urinating or defecating - Signs of allergic reaction to medications (rash, swelling, difficulty breathing) Rationale and Evidence: - Surgical drainage is the mainstay of therapy for anorectal abscess, especially in recurrent or deep cases. - Antibiotics are reserved for patients with systemic illness, immunosuppression, or complex/recurrent abscesses, and may reduce the risk of fistula formation in select populations, though evidence is mixed and quality is low. - Pain control and wound hygiene are essential for patient comfort and to reduce secondary infection risk. Planned Follow-Up: - Outpatient surgical evaluation within 1 week, or sooner if symptoms worsen. - Continue current medications as above until surgical review. Patient Education: - The risk of recurrence and fistula formation remains elevated in recurrent or inadequately drained abscesses. - Adherence to follow-up and instructions is critical for optimal outcomes. Contact Information: - Call on Monday to confirm your appointment with general surgery. Print Language: [place]ian Coding Level of Care Code ED Repairer Maintenance Building for [employer] Documented by User: Hany Jackson, 02/01/25 19:25 HPI - Skin/Abscess/Foreign Bdy 2 General: Chief complaint: Skin/Abscess/Foreign Body Stated complaint: lump on back Time Seen by Provider: 02/01/25 15:10 Related Data Home Medications ?Medication ?Instructions ?Recorded ?Confirmed acetaminophen 500 mg tablet 500 mg PO QID PRN Fever Or Pain 08/26/24 02/01/25 (Tylenol Extra Strength) Previous Rx's ?Medication ?Instructions ?Recorded doxycycline hyclate 100 mg tablet 100 mg PO BID 5 days #10 tabs 01/30/25 naproxen sodium 550 mg tablet 550 mg PO BID PRN pain # 14 tabs 01/30/25 (Anaprox DS) hydrocodone 7.5 mg-acetaminophen 1 tab PO Q8H PRN pain #14 tabs 02/01/25 325 mg tablet Allergies Allergy/AdvReac Type Severity Reaction Status Date / Time Penicillins Allergy Severe ALGY-Anaphy Verified 01/30/25 10:50 laxis PFSH ED 2 PFSH: Medical History No pertinent family history Surgical History No pertinent past surgical history Social History Smoking and tobacco/nicotine status: current every day tobacco/nicotine user Course 2 Vital Signs: Vital signs: Vital Signs Temperature 97.8 F 02/01/25 16:35 Pulse Rate 66 02/01/25 16:35 Respiratory Rate 18 02/01/25 14:29 Blood Pressure 149/102 02/01/25 16:35 Pulse Oximetry 98 02/01/25 16:35 Oxygen Delivery Me thod Room Air 02/01/25 16:35 MDM - Skin/Abscess/Foreign Bdy Medicial Decision Making Patient presenting with continued buttock pain, has been dealing with perianal abscess since October in which she had it procedurally drained in the OR and packed for a month. Was seen in the emergency department couple days ago for the pain, attempt with needle aspiration was unsuccessful he was discharged on doxycycline and diclofenac. There was some erythema and induration just adjacent to the previous incision, likely scar tissue but with the amount of new tenderness cannot rule out this is an adjacent abscess. CT scan showing that there is actually decrease in the size of the abscess along the right gluteal cleft with mild inflammatory changes and no signs of a fistula. Attempt at drainage of the area of new tenderness and induration was unsuccessful and the abscess is too deep for safe drainage here in the ED, and he is going to be referred to general surgery for a more definitive procedural drainage if warranted. Will give him some [place] for home in the meantime, and he is instructed to follow-up early next week. I also spoke to Dr. Reilly, general surgeon, about this patient and agrees. He will continue to take his doxycycline. I also instructed him to take MiraLAX to avoid any significant rectal pain with defecation. This patient was originally seen by Mr. Porsha PA-C. I agree with his history, evaluation, and management. Lab Data 02/01/25 17:17 02/01/25 17:17 Radiology Impressions Abdomen/Pelvis CT 02/01/25 16:45 IMPRESSION: 1. Interval decrease in size of an abscess along the right gluteal cleft, now measuring up to 2.5 cm, previously 3.0 cm. Mild surrounding inflammatory changes. 2. Hepatomegaly with hepatic steatosis. Laboratory Results WBC 11.41 10^3/uL (3.29-11.43) 02/01/25 17:17 RBC 6.33 10^6/uL (3.85-5.65) H 02/01/25 17:17 Hgb 17.20 g/dL (11.27-16.99) H 02/01/25 17:17 Hct 51.5 % (37-53) 02/01/25 17:17 MCV 81.4 fl (82-101) L 02/01/25 17:17 MCH 27.2 pg (27-33) 02/01/25 17:17 MCHC 33.4 g/dL (30-55) 02/01/25 17:17 RDW 12.2 % (12.1-15.1) 02/01/25 17:17 Plt Count 181 10^3/cmm (157-399) 02/01/25 17:17 MPV 12.1 fL (7.4-10.4) H 02/01/25 17:17 Neut % (Auto) 57.2 % 02/01/25 17:17 Lymph % (Auto) 31.8 % 02/01/25 17:17 [place] % (Auto) 8.1 % 02/01/25 17:17 Eos % (Auto) 1.8 % 02/01/25 17:17 Baso % (Auto) 0.7 % 02/01/25 17:17 Neut # (Auto) 6.54 10^3/uL (1.8-7.7) 02/01/25 17:17 Lymph # (Auto) 3.6 10^3/uL (0.8-4.8) 02/01/25 17:17 [place] # (Auto) 0.9 10^3/uL (0.2-0.9) 02/01/25 17:17 Eos # (Auto) 0.2 10^3/uL (0.0-0.8) 02/01/25 17:17 Baso # (Auto) 0.1 10^3/uL (0.0-0.1) 02/01/25 17:17 Nucleated RBC % (auto) 0 % 02/01/25 17:17 Nucleated RBCs # 0.0 /100WBC 02/01/25 17:17 Sodium 139 mmol/L (136-145) 02/01/25 17:17 Potassium 3.7 mmol/L (3.5-5.1) 02/01/25 17:17 Chloride 103 mmol/L (98-107) 02/01/25 17:17 Carbon Dioxide 25 mmol/L (22-29) 02/01/25 17:17 Anion Gap 14.7 (5-19) 02/01/25 17:17 BUN 7 mg/dL (6-20) 02/01/25 17:17 Creatinine 0.9 mg/dL (0.7-1.2) 02/01/25 17:17 GFR Calculation 97.2 mL/min (90-130) 02/01/25 17:17 Glucose 98 mg/dL (65-115) 02/01/25 17:17 Calculated Osmolality 286 mOsm/kg (285-295) 02/01/25 17:17 Calcium 9.7 mg/dL (8.5-10.5) 02/01/25 17:17 Total Bilirubin 0.4 mg/dL (0.15-1.2) 02/01/25 17:17 AST 22 U/L (0-40) 02/01/25 17:17 ALT 41 U/L (0-41) 02/01/25 17:17 Alkaline Phosphatase 122 U/L (40-130) 02/01/25 17:17 Total Protein 7.1 g/dL (6.6-8.7) 02/01/25 17:17 Albumin 4.4 g/dL (3.5-5.2) 02/01/25 17:17 Globulin 2.7 g/dL (1.3-4.6) 02/01/25 17:17 Discharge Plan Discharge Patient Disposition: Home Clinical Impression: Abscess of skin or subcutaneous tissue Qualifiers: Site of cutaneous abscess: buttock Qualified Code(s): L02.31 - Cutaneous abscess of buttock Condition: Stable Prescriptions: New hydrocodone-acetaminophen 7.5-325 mg tablet 1 tab PO Q8H PRN (Reason: pain) Qty: 14 0RF No Action acetaminophen [Tylenol Extra Strength] 500 mg Tablet 500 mg PO QID PRN (Reason: Fever Or Pain) doxycycline hyclate 100 mg tablet 100 mg PO BID 5 Days Qty: 10 0RF naproxen sodium [Anaprox DS] 550 mg tablet 550 mg PO BID PRN (Reason: pain) Qty: 14 0RF Discharge Orders: Discharge ED (Routine); Ordered 02/01/25 Ordered By: Segundo Story Referrals: Madison Girard PA [Primary Care Provider, Physicians Neon Sign Installer] Patient Instructions: Opioid Safety, Pain Management, Patient Portal & Felipe Instructions Activity Restrictions/Additional Instructions: Perianal Abscess Discharge Diagnosis and Current Status: The patient is a 34-year-old male with a history of recurrent perianal abscess, presenting with buttock pain adjacent to a previous surgical incision. Imaging demonstrates interval decrease in abscess size, but a persistent deep abscess remains adjacent to the anal region. Attempted drainage in the emergency department was unsuccessful. The patient is being referred to general surgery for definitive procedural drainage. Discharge Instructions: - Follow-Up and Surgical Referral: - The patient must follow up with general surgery as soon as possible for further evaluation and definitive drainage. Prompt surgical management is the standard of care for persistent or recurrent anorectal abscesses, as recommended by the [place] [employer]. - If symptoms worsen (increasing pain, fever, spreading redness, or new drainage), or if there are signs of systemic illness (chills, rigors, confusion), the patient should return to the emergency department immediately. - Wound Care: - Keep the perianal area clean and dry. Gently cleanse the area with warm water after bowel movements and pat dry. - Avoid aggressive cleaning or use of irritants near the wound. - Pain Management: - Hydrocodone has been prescribed for pain control. Take as directed, and do not exceed the prescribed dose. Use the lowest effective dose for the shortest necessary duration to minimize opioid-related adverse effects. - Acetaminophen or nonsteroidal anti-inflammatory drugs (NSAIDs) may be used as adjuncts if not contraindicated. - Antibiotic Therapy: - Continue doxycycline as prescribed. While routine antibiotics are not recommended after drainage of uncomplicated anorectal abscesses, selective use is appropriate in cases of recurrent abscess, deep or complex collections, or in the presence of surrounding cellulitis or systemic symptoms. - Complete the full course unless otherwise directed. Monitor for side effects such as gastrointestinal upset or rash. - Bowel Management: - Maintain soft stools to reduce straining and discomfort. Consider a fiber supplement and adequate hydration. - If constipation occurs, a gentle stool softener may be used. - Activity: - Limit strenuous activity until evaluated by surgery. Walking and light activity are encouraged as tolerated. - Signs and Symptoms Warranting Immediate Medical Attention: - Worsening pain, swelling, or redness in the perianal area - Fever >38.5?C (101.3?F) - Chills, rigors, or feeling unwell - New or increased drainage, especially if foul-smelling or purulent - Difficulty urinating or defecating - Signs of allergic reaction to medications (rash, swelling, difficulty breathing) Rationale and Evidence: - Surgical drainage is the mainstay of therapy for anorectal abscess, especially in recurrent or deep cases. - Antibiotics are reserved for patients with systemic illness, immunosuppression, or complex/recurrent abscesses, and may reduce the risk of fistula formation in select populations, though evidence is mixed and quality is low. - Pain control and wound hygiene are essential for patient comfort and to reduce secondary infection risk. Planned Follow-Up: - Outpatient surgical evaluation within 1 week, or sooner if symptoms worsen. - Continue current medications as above until surgical review. Patient Education: - The risk of recurrence and fistula formation remains elevated in recurrent or inadequately drained abscesses. - Adherence to follow-up and instructions is critical for optimal outcomes. Contact Information: - Call on Monday to confirm your appointment with general surgery. Print Language: [place]ian Coding Level of Care Code ED Repairer Maintenance Building for [employer]
[2025-02-01 17:21] LABS: Hematocrit 51.5 % (37-53); Hemoglobin 17.20 g/dL (11.27-16.99); Mean Corpuscular HGB Conc 33.4 g/dL (30-55); Mean Corpuscular Hemoglobin 27.2 pg (27-33); Mean Corpuscular Volume 81.4 fl (82-101); Nucleated Red Blood Cells % 0 %; Platelet Count 181 10^3/cmm (157-399); Red Blood Count 6.33 10^6/uL (3.85-5.65); White Blood Count 11.41 10^3/uL (3.29-11.43)
[2025-02-01] MEDS: HYDROcodone-acetaminophen 7.5-325 mg Tablet 1 TAB PO (17:22)
[2025-02-01] MEDS: iohexol 350 mg/mL 500 mL Btl (per mL) IV (17:29)
[2025-02-01 17:37] LABS: Alanine Aminotransferase 41 U/L (0-41); Albumin Level 4.4 g/dL (3.5-5.2); Alkaline Phosphatase 122 U/L (40-130); Anion Gap 14.7 (5-19); Aspartate Amino Transferase 22 U/L (0-40); Blood Urea Nitrogen 7 mg/dL (6-20); Calcium 9.7 mg/dL (8.5-10.5); Carbon Dioxide 25 mmol/L (22-29); Chloride 103 mmol/L (98-107); Creatinine Clr Calc Pharmacy 166.7602; Globulin 2.7 g/dL (1.3-4.6); Glucose 98 mg/dL (65-115); Osmolality Calculated 286 mOsm/kg (285-295); Potassium 3.7 mmol/L (3.5-5.1); Sodium 139 mmol/L (136-145); Total Protein 7.1 g/dL (6.6-8.7)
[2025-02-01] MEDS: lidocaine-epi 2% 20 mL INJ INJECTION (19:00)
[2025-02-01] MEDS: HYDROcodone-acetaminophen 7.5-325 mg Tablet 2 TAB PO (19:54)
--- NOTE | 2025-02-05 09:12 | DCPLANNER ---
Message sent to General Surgery for referral-Patient presenting with continued buttock pain, has been dealing with perianal abscess since October in which she had it procedurally drained in the OR and packed for a month. Was seen in the emergency department couple days ago for the pain, attempt with needle aspiration was unsuccessful he was discharged on doxycycline and diclofenac. There was some erythema and induration just adjacent to the previous incision, likely scar tissue but with the amount of new tenderness cannot rule out this is an adjacent abscess. CT scan showing that there is actually decrease in the size of the abscess along the right gluteal cleft with mild inflammatory changes and no signs of a fistula. Attempt at drainage of the area of new tenderness and induration was unsuccessful and the abscess is too deep for safe drainage here in the ED, and he is going to be referred to general surgery for a more definitive procedural drainage if warranted. Will give him some [place] for home in the meantime, and he is instructed to follow-up early next week. I also spoke to Dr. Reilly, general surgeon, about this patient and agrees. He will continue to take his doxycycline. I also instructed him to take MiraLAX to avoid any significant rectal pain with defecation.
== END 2025-02-01 20:00 | disposition home or self-care (01) ==
PROVIDERS: Emergency Provider Physician Assistant; PCP Physician Assistant
DX: L02.31 Cutaneous abscess of buttock (principal); Z72.0 Tobacco use
CPT/HCPCS: 36415; 74177; 80053; 85025; 99285; J9999; Q0162

== ENCOUNTER → 2025-05-01 17:51 | Outpatient (BNVA) | payer SELFPAY | PROVIDERS: PCP Physician Assistant; Visit Provider Nurse Practitioner | DX: L02.31 Cutaneous abscess of buttock (principal); L03.317 Cellulitis of buttock | CPT/HCPCS: 87070 ==